=== PATIENT | female | born 1940 | race Caucasian/White ===

== ENCOUNTER 2017-03-07 14:45 | Inpatient (IN) ==
[2017-03-07] MEDS ORDERED: ONDANSETRON ODT 4 MG TABLET SL ONE (15:02)
--- NOTE | 2017-03-07 15:09 | Emergency Department Note ---
Fall HPI - General Chief Complaint: Fall Stated Complaint: Fall, R hip pain Time Seen by Provider: 03/07/17 14:53 Source: patient, family Mode of arrival: wheelchair Limitations: no limitations - History of Present Illness HPI Narrative: 77-year-old female who tripped over a garden hose at home and fell. She landed on her left hip and left knee these are quite painful now. She is in severe pain moaning. Denies any nausea vomiting diarrhea recent illness - Related Data Home Medications Medication Instructions Recorded Confirmed Donepezil [Aricept] 10 mg PO HS 04/04/15 03/07/17 Metoprolol Succinate [Toprol Xl] 25 mg PO DAILY 04/04/15 03/07/17 Rivaroxaban [Xarelto] 20 mg PO DAILY 04/04/15 03/07/17 Verapamil [Calan Sr] 240 mg PO DAILY 04/04/15 03/07/17 Sertraline [Zoloft] 100 mg PO DAILY 03/07/17 03/07/17 Allergies Allergy/AdvReac Type Severity Reaction Status Date / Time adhesive tape AdvReac Hives Verified 03/07/17 14:48 codeine AdvReac Confusion Verified 03/07/17 14:48 Penicillins AdvReac Hives Verified 03/07/17 14:48 Review of Systems All systems ED: reviewed and negative except as stated. Fall PMH - Past Medical History Attestation: Yes: The following information was validated with the patient. Medical history: Reports: atrial fibrillation, hypertension, other (Minor cognitive impairment/early dementia) Surgical history ED: Reports: other (Gastric bypass) - Social History smoking status: Never smoker Alcohol use: Reports: None Drug use: Reports: none Physical Exam Thin frail elderly female in some acute distress secondary to pain. Normocephalic atraumatic. Conjunctive are clear sclerae nonicteric. No nasal discharge or congestion. Oropharynx pink and moist. Heart is regular rate and rhythm no murmur appreciated. Lungs clear to auscultation bilaterally without wheezes rales rhonchi or respiratory distress. +2 radial pulse. +2 posterior tibialis pulse on the left. She is got some tenderness at the medial portion of the right knee joint line but no significant edema effusion or redness in this area. Similar right hip very tender both at the groin and the greater trochanter area and she is not wanting to move that well. Leg length looks about equal and I do not see any deformity. She is able to move her toes foot and ankle normally. Alert and oriented able to answer questions appropriately. Face is symmetrical Limitations: no limitations Course Vital Signs Temperature 98.5 F 03/07/17 14:46 Pulse Rate 68 03/07/17 14:46 Respiratory Rate 22 03/07/17 14:46 Blood Pressure 168/112 03/07/17 14:46 Pulse Oximetry (%) 97 03/07/17 14:46 Temperature 97.8 F 03/08/17 06:50 Pulse Rate 92 H 03/08/17 04:00 Respiratory Rate 14 03/08/17 06:50 Blood Pressure 109/76 03/08/17 06:50 Pulse Oximetry (%) 96 03/08/17 06:50 Fall - Lab Data Lab results reviewed: Yes I reviewed the patient's lab results. Result diagrams: 03/08/17 04:05 03/08/17 04:05 Lab Results 03/07/17 03/07/17 03/07/17 Range/Units 16:05 16:05 16:05 WBC 10.3 (4.5-11.0) K/mcL RBC 4.64 (4.00-5.20) M/mcL Hgb 14.5 (12.0-15.0) g/dL Hct 42.7 (36.0-48.0) % POC Hct 47.0 (36.0-48.0) % MCV 92.1 (80.0-100.0) fL MCH 31.2 (26.0-34.0) pg MCHC 33.8 (31.0-36.0) g/dL RDW 13.6 (11.5-14.5) % Plt Count 161 (140-440) K/mcL MPV 9.0 (7.4-10.4) fL Gran % 67.0 (38.0-78.0) % Lymph % (Auto) 26.6 (15.5-49.0) % [place] % (Auto) 4.7 (1.0-12.0) % Eos % (Auto) 0.8 (0.0-7.0) % Baso % (Auto) 0.9 (0.0-2.0) % Gran # 6.9 (1.8-8.0) K/mcL Lymph # (Auto) 2.7 (1.5-4.8) K/mcL [place] # (Auto) 0.5 (0.1-0.9) K/mcL Eos # (Auto) 0.1 (0.0-0.7) K/mcL Baso # (Auto) 0.1 (0.0-0.3) K/mcL VBG Lactic Acid 2.6 H (0.5-2.2) mmol/L POC Sodium 139 (133-145) mmol/L Sodium 140 (133-145) mmol/L POC Potassium 4.4 (3.3-5.1) mmol/L Potassium 4.1 (3.3-5.1) mmol/L POC Chloride 110 H (96-108) mmol/L Chloride 103 (96-108) mmol/L Carbon Dioxide 21 L (22-30) mmol/L POC Total CO2 21 L (22-30) mmol/L Anion Gap 16.0 (8-16) POC BUN 18 (8-23) mg/dl BUN 15 (8-23) mg/dl Creatinine 0.7 (0.6-1.1) mg/dl POC Creatinine 0.6 (0.6-1.1) mg/dl GFR Calculation 84 Glucose 114 H (70-105) mg/dL POC Glucose 94 (70-105) mg/dL Calcium 9.6 (8.6-10.4) mg/dl POC WB Ioniz Calcium 1.03 L (1.16-1.32) mmol/L Total Bilirubin 0.3 (0.0-1.0) mg/dL AST 23 (0-37) U/l ALT 23 (0-40) U/l Alkaline Phosphatase 69 (39-117) U/L Total Protein 6.6 (5.9-8.4) gm/dL Albumin 4.1 (3.2-5.2) gm/dL Globulin 2.5 (2.2-3.7) gm/dL Albumin/Globulin Ratio 1.6 (1.0-2.3) - Radiology Data Radiology results reviewed: Yes I reviewed the patient's radiology results. Chest x-ray showed no acute cardiopulmonary abnormality Right knee x-ray does not show any acute dislocation or fracture Right hip x-ray shows impacted subcapital femoral fracture - EKG Data EKG attestation: Yes I reviewed and interpreted this EKG. EKG results narrative: EKG showed rate of 73 atrial fibrillation Disposition Pt seen by MANAGER ENVIRONMENTAL HEALTH AND SAFETY/PA only: No Clinical Impression: Subcapital fracture of right femur Summary: Initial workup with imaging and laboratory. Preoperative tests ordered as well in anticipation of possible hip fracture requiring surgery. Pain is treated with Dilaudid as well as nausea with Zofran X-ray shows impacted subcapital right femoral fracture. Dr. Gomez was consulted and did see the patient. She will be admitted and taken back to the OR for definitive care Disposition: Xfer As Outpt/Obs ([facility]) Condition: Fair
[2017-03-07] MEDS: HYDROmorphone 2 MG/ML SYRINGE IV PRN ×2 (15:30→17:00)
--- NOTE | 2017-03-07 16:22 | Orthopedic Consult Note ---
History of Present Illness - HPI Patient information: Note initiated : 03/07/17 at 4:20 pm Service Date, if different from initiated Date: [] Patient: Irma Franco 77 y/o F admitted on for Fall, R hip pain. Chief Complaint: [right hip and knee pain] The patient fell over a garden hose at home this morning, landing on her right hip and knee. She was unable to ambulate and was brought by her daughter to the ER this morning. She denies hitting her head, nausea, vomiting, loss of consciousness or a history of frequent falls. She has a PMH significant for atrial fibrillation, hypertension, cognitive impairment. She denies alcohol, tobacco or drug use. Consult reason: fracture Review of Systems Constitutional: no chills, no fever(s), no frequent falls Cardiovascular: no chest pain, no dyspnea Respiratory: no dyspnea, no dyspnea on exertion Musculoskeletal: abnormal gait, muscle cramps Musculoskeletal: right: hip pain, knee pain Medications and Allergies Home Medications Medication Instructions Recorded Confirmed Type Donepezil [Aricept] 10 mg PO HS 04/04/15 04/04/15 History Metoprolol Succinate [Toprol Xl] 25 mg PO DAILY 04/04/15 04/04/15 History Rivaroxaban [Xarelto] 20 mg PO DAILY 04/04/15 04/04/15 History Spironolactone [Aldactone] 25 mg PO DAILY 04/04/15 04/04/15 History Verapamil [Calan Sr] 240 mg PO DAILY 04/04/15 04/04/15 History Vilazodone HCl [Viibryd] 20 mg PO DAILY 04/04/15 04/04/15 History Nitrofurantoin Sr [Macrobid] 100 mg PO BID #20 capsule 04/05/15 Rx Allergies Allergy/AdvReac Type Severity Reaction Status Date / Time adhesive tape AdvReac Hives Verified 03/07/17 14:48 codeine AdvReac Confusion Verified 03/07/17 14:48 Penicillins AdvReac Hives Verified 03/07/17 14:48 Physical Examination - Hip right Gait: other (non ambulatory) Tenderness with palpation: anterior, posterior, medial, lateral, greater trochanter, other Pain with motion: internal rotation and hip flexion, internal rotation and hip extension, external rotation and hip flexion, external rotation and hip extension, other - Fracture right hip Compartments: soft Distal extremity neurovascularly intact: Yes Assessment and Plan (1) Intertrochanteric fracture of right hip Assessment: intertrochanteric displaced right hip fracture Plan: -Patient was assessed by Dr. Gomez in the ER and imaging was revealed which showed a right displaced hip fracture. The recommended procedure is an intramedullary hip nail. This was discussed with the patient and her daughter including the risks and benefits therein including fracture nonunion, wound failure, infection, blood clot. The patient understands and wishes to proceed with surgery. No guarantees were made. -Will be admitted to inpatient per hospitalist for medical management -On xarelto. Will monitor CBC and Hgb serially Status: Acute Exam Vital signs: Temp Pulse Resp BP Pulse Ox 98.5 F 68 22 168/112 97 03/07/17 14:46 03/07/17 14:46 03/07/17 14:46 03/07/17 14:46 03/07/17 14:46 Constitutional: well developed, well nourished, no acute distress Head: normocephalic, atraumatic Respiratory: clear to auscultation bilaterally Cardiovascular: regular rate & rhythm with no murmurs, rubs or gallops Musculoskeletal: other (NVI intact bilateral LE. Motor and sensory grossly intact. Cap refill < 3 sec. right LE externally rotated and shortened)
[2017-03-07 16:37] LABS: Basophils # (Auto) 0.1 K/mcL (0.0-0.3); Basophils % (Auto) 0.9 % (0.0-2.0); Eosinophils # (Auto) 0.1 K/mcL (0.0-0.7); Eosinophils % (Auto) 0.8 % (0.0-7.0); Lymphocytes # (Auto) 2.7 K/mcL (1.5-4.8); Lymphocytes % (Auto) 26.6 % (15.5-49.0); Mean Cell Volume 92.1 fL (80.0-100.0); Mean Corpuscular HGB Conc 33.8 g/dL (31.0-36.0); Mean Corpuscular Hemoglobin 31.2 pg (26.0-34.0); Monocytes # (Auto) 0.5 K/mcL (0.1-0.9); Monocytes % (Auto) 4.7 % (1.0-12.0); Platelet Count 161 K/mcL (140-440); RBC 4.64 M/mcL (4.00-5.20); Red Cell Distribution Width 13.6 % (11.5-14.5)
[2017-03-07 16:43] LABS: ALT/SGPT 23 U/l (0-40); Albumin 4.1 gm/dL (3.2-5.2); Albumin/Globulin Ratio 1.6 (1.0-2.3); Alkaline Phosphatase 69 U/L (39-117); Blood Urea Nitrogen 15 mg/dl (8-23)
[2017-03-07] MEDS ORDERED: 0.9 % SODIUM CHLORIDE 1,000 ML IV ONE (16:43)
[2017-03-07] MEDS ORDERED: HYDROmorphone 2 MG/ML SYRINGE ONE (17:07)
--- NOTE | 2017-03-07 17:35 | Internal Med History&Physical ---
Medical - H&P: [facility] Patient information: Note initiated : 03/07/17 at 5:33 pm Service Date, if different from initiated Date: [] Patient: Irma Franco a 77 y/o F admitted on for Fall, R hip pain. Chief Complaint: right hip and knee pain History of present illness: Ms. Franco is a 77 year old F female with history of treated hypertension, rate controlled atrial fibrillation on several toe, cognitive impairment on Aricept who presents after a fall at home. Most of the history is obtained in speaking with the emergency department, the patient is quite somnolent postoperatively. Patient tripped over a garden hose this morning. She fell onto her right knee and hip. She had pain in both joints. She did not have chest pain, was not dizzy, did not strike her head. There was no loss of consciousness. She is transported to the hospital, where she is found to have a subcapital right femoral neck fracture. From the emergency department she was taken directly to the operating room for repair by Dr. Gomez. When I see the patient, she is postop, somnolent and cannot give much further history. ROS unobtainable: due to mental status Medical - H&P: PMH Medical history: Atrial fibrillation, on Xarelto for stroke prophylaxis Hypertension Cognitive impairment/early dementia History of urinary tract infection Surgical history: History of gastric bypass Pertinent family history: The patient's unable to provide due to somnolence in the postoperative period Social history: Patient has never smoked cigarettes. She has not drink alcohol. Medical - H&P: Meds Home Medications Medication Instructions Recorded Confirmed Type Donepezil [Aricept] 10 mg PO HS 04/04/15 03/07/17 History Metoprolol Succinate [Toprol Xl] 25 mg PO DAILY 04/04/15 03/07/17 History Rivaroxaban [Xarelto] 20 mg PO DAILY 04/04/15 03/07/17 History Verapamil [Calan Sr] 240 mg PO DAILY 04/04/15 03/07/17 History Sertraline [Zoloft] 100 mg PO DAILY 03/07/17 03/07/17 History Allergies Allergy/AdvReac Type Severity Reaction Status Date / Time adhesive tape AdvReac Hives Verified 03/07/17 14:48 codeine AdvReac Confusion Verified 03/07/17 14:48 Penicillins AdvReac Hives Verified 03/07/17 14:48 Medical - H&P: Exam - Constitutional Vitals: Temp Pulse Resp BP Pulse Ox 98.5 F 73 22 183/108 97 03/07/17 14:46 03/07/17 17:08 03/07/17 14:46 03/07/17 17:08 03/07/17 17:08 Exam: General: Drowsy, arouses, mumbles some responses. HEENT: Normocephalic. Pupils are equally round. Sclera are anicteric. No conjunctival injection. Oropharynx is with moist mucous membranes, no lip or gum lesions. Tongue is midline. Neck: Supple, no meningismus. No thyromegaly. Chest: Clear to auscultation, no wheezes. No accessory muscle use. Cardiovascular: Irregularly irregular rhythm without murmur gallop or rub. Carotid pulses are 2+ without bruit. There is no lower extremity edema. Abdomen: Soft, nontender without guarding or rebound. Active bowel sounds. No hepatosplenomegaly. Skin: Warm, dry. No rash. Skin turgor is normal Musculoskeletal: Right hip with dressings in place. No other joint erythema. BLE cool, but neurovascularly intact. Neuro: Drowsy, answers to name. Cannot participate in remainder of exam. Medical - H&P: Reslt - Labs CBC & Chem 7: 03/07/17 16:05 03/07/17 16:05 Labs: Short CBC 03/07/17 Range/Units 16:05 WBC 10.3 (4.5-11.0) K/mcL Hgb 14.5 (12.0-15.0) g/dL Hct 42.7 (36.0-48.0) % Plt Count 161 (140-440) K/mcL BMP 03/07/17 16:05 Sodium 140 Potassium 4.1 Chloride 103 Carbon Dioxide 21 L BUN 15 Creatinine 0.7 Glucose 114 H Calcium 9.6 Liver Function 03/07/17 Range/Units 16:05 Total Bilirubin 0.3 (0.0-1.0) mg/dL AST 23 (0-37) U/l ALT 23 (0-40) U/l Alkaline Phosphatase 69 (39-117) U/L Albumin 4.1 (3.2-5.2) gm/dL - EKG Data -: EKG Reviewed by Myself (A fib, rate controlled, no ST changes) - Impressions Chest x-ray, reviewed Clear lung day Right hip and femur films Right intertrochanteric femur fracture. No knee fracture. Medical - H&P: A/P (1) Intertrochanteric fracture of right hip Current visit: Yes Status: Acute (2) Atrial fibrillation Current visit: Yes Status: Chronic (3) Hypertension Current visit: Yes Status: Chronic (4) Cognitive impairment Current visit: Yes Status: Chronic - Narrative A/P Narrative: 77-year-old female with ground-level fall and right hip fracture. Right intertrochanteric hip fracture. Patient is status post repair by Dr. Gomez. Mechanism appears to be mechanical ground-level fall. No evidence of cardiac event, no loss of consciousness. She tripped over a garden hose. Plan: 1. Inpatient admission 2. Pain control 3. Physical therapy consultation Elevated lactate. Lactate mildly elevated at 2.6. No evidence of sepsis. Plan: Recheck following fluids and surgery. Atrial fibrillation. On metoprolol and verapamil for rate control. Also on Xarelto for stroke prophylaxis. At risk for bleeding due to Xarelto therapy. Plan: Resume Xarelto in AM, (at least 12 hrs post-op), trend hemoglobin. Transfuse if needed. Hypertension. Plan: Continue home regimen. Cognitive impairment/dementia. At risk for delirium in the postoperative [place]. Plan: Continue Aricept, supportive care, try to minimize INVENTORY SPECIALIST MANAGER active medications. CODE STATUS: Unable to discuss CODE STATUS due to somnolence. Full code by default at this point, we will readdress when awake.
[2017-03-07] MEDS: ceFAZolin 1 GM VIAL IV SCH ×2 (17:50)
[2017-03-07] MEDS ORDERED: fentaNYL 100 MCG/2 ML VIAL IV PRN (17:52)
[2017-03-07] MEDS ORDERED: METHOCARBAMOL 1,000 MG/10 ML VIAL IV PRN (17:52)
[2017-03-07] MEDS ORDERED: IPRATROPIUM/ALBUTEROL 3 ML AMPUL.NEB NEB PRN (17:52)
[2017-03-07] MEDS ORDERED: MEPERIDINE 25 MG/ML SYRINGE IV PRN (17:52)
[2017-03-07] MEDS ORDERED: ONDANSETRON 4 MG/2 ML VIAL IV PRN ×2 (17:52→19:38)
[2017-03-07] MEDS ORDERED: LIDOCAINE HCL/PF 100 MG/5 ML SYRINGE IV ONE (18:00)
[2017-03-07] MEDS ORDERED: PROPOFOL 200 MG/20 ML VIAL IV ONE (18:00)
[2017-03-07] MEDS ORDERED: PROMETHAZINE 12.5 MG SUPP.RECT PR ONE (18:00)
[2017-03-07] MEDS ORDERED: HYDROmorphone 2 MG/ML SYRINGE IV ONE (18:00)
[2017-03-07] MEDS ORDERED: MIDAZOLAM 2 MG/2 ML VIAL IV ONE (18:00)
[2017-03-07] MEDS ORDERED: GLYCOPYRROLATE 0.2 MG/ML VIAL IV ONE (18:00)
[2017-03-07] MEDS ORDERED: LACTATED RINGERS 1,000 ML IV SCH (18:00)
[2017-03-07] MEDS ORDERED: NALBUPHINE 10 MG/ML AMPUL IV ONE (18:00)
[2017-03-07] MEDS ORDERED: KETAMINE 100 MG/ML ML IV ONE (18:00)
--- NOTE | 2017-03-07 18:56 | Brief Operative Note ---
Date of procedure: 03/07/17 Pre-op diagnosis: right hip intertrochanteric fracture Post-op diagnosis: same Procedure: right hip cephalomedullary nail Grafts/Implants: Yes Anesthesia: GETA Complications: none Surgeon: Steve Gomez Supervisor [employer]: Carolyn Ariza Estimated blood loss (cc): 150 Specimens Removed/Pathology: none sent Condition: stable Disposition: PACU
[2017-03-07] MEDS ORDERED: METOPROLOL TARTRATE 5 MG/5 ML VIAL IV PRN (18:57)
[2017-03-07] MEDS ORDERED: POLYETHYLENE GLYCOL 3350 17 GM PACKET PO PRN (19:38)
[2017-03-07] MEDS ORDERED: ONDANSETRON ODT 4 MG TABLET SL PRN (19:38)
[2017-03-07] MEDS ORDERED: MAGNESIUM HYDROXIDE 30 ML ORAL.SUSP PO PRN (19:38)
[2017-03-07] MEDS ORDERED: BENZOCAINE/MENTHOL 1 LOZENGE PO PRN (19:38)
[2017-03-07] MEDS ORDERED: FLEETS ADULT ENEMA PR PRN (19:38)
[2017-03-07] MEDS ORDERED: BISACODYL 10 MG SUPP.RECT PR PRN (19:38)
[2017-03-07] MEDS: 0.9 % SODIUM CHLORIDE 1,000 ML IV SCH (20:06)
[2017-03-07] MEDS: DONEPEZIL 10 MG TABLET PO SCH (22:19)
[2017-03-07] MEDS: DOCUSATE SODIUM 100 MG CAPSULE PO SCH (22:20)
[2017-03-07] MEDS: SENNOSIDES 1 TABLET PO SCH (22:20)
[2017-03-08] MEDS: ceFAZolin 1 GM VIAL IV SCH ×2 (01:46→09:22)
[2017-03-08] MEDS: 0.9 % SODIUM CHLORIDE 1,000 ML IV SCH ×2 (05:33→14:49)
--- NOTE | 2017-03-08 06:24 | Orthopedic Progress Note ---
Subjective Patient information: Note initiated : 03/08/17 at 6:23 am Service Date, if different from initiated Date: [] Patient: Irma Franco 77 y/o F admitted on 03/07/17 for Fall, R hip pain. Chief Complaint: [] Interval history: doing ok. pain under control Objective Vital signs: Vital Signs Temp Pulse Pulse Pulse Resp BP BP 03/08/17 04:00 97.4 F 92 H 18 109/77 03/07/17 23:45 81 125/80 03/07/17 23:43 96.9 F L 89 16 125/80 03/07/17 22:45 87 121/82 03/07/17 21:45 79 145/98 03/07/17 21:15 73 139/92 03/07/17 20:45 74 155/91 03/07/17 20:30 83 152/101 03/07/17 20:15 79 157/103 03/07/17 20:00 81 158/110 03/07/17 19:45 97.9 F 75 16 161/98 03/07/17 19:22 99.0 F H 80 18 165/88 03/07/17 19:17 98.9 F 82 13 165/93 03/07/17 19:12 97.3 F 73 14 169/101 03/07/17 19:07 97.1 F 78 12 151/102 03/07/17 19:02 97.6 F 118 H 15 173/110 03/07/17 18:57 97.4 F 79 13 171/108 03/07/17 18:52 98.3 F 86 15 178/103 03/07/17 17:36 98.5 F 73 22 168/112 03/07/17 17:08 73 183/108 03/07/17 14:46 98.5 F 68 22 168/112 Pulse Ox 03/08/17 04:00 95 03/07/17 23:45 100 03/07/17 23:43 99 03/07/17 22:45 97 03/07/17 21:45 99 03/07/17 21:15 100 03/07/17 20:45 98 03/07/17 20:30 98 03/07/17 20:15 99 03/07/17 20:00 98 03/07/17 19:45 97 03/07/17 19:22 100 03/07/17 19:17 100 03/07/17 19:12 98 03/07/17 19:07 100 03/07/17 19:02 90 03/07/17 18:57 96 03/07/17 18:52 99 03/07/17 17:36 97 03/07/17 17:08 97 03/07/17 14:46 97 Intake and Output 03/07/17 03/08/17 03/08/17 21:59 05:59 13:59 Intake Total 105 / 105 1045 / 1045 Output Total 600 / 600 400 / 400 Balance -495 / -495 645 / 645 Intake: IV 105 / 105 945 / 945 Sodium Chloride 0.9% 1,000 ml @ 105 / 105 945 / 945 100 mls/hr IV .Q10H PREETI Rx#: [id number] Oral 100 / 100 Output: Urine Catheter Amount 600 / 600 400 / 400 Other: Weight 135 lb Intake & Output: Intake & Output 03/07/17 03/08/17 03/08/17 21:59 05:59 13:59 Intake Total 105 / 105 1045 / 1045 Output Total 600 / 600 400 / 400 Balance -495 / -495 645 / 645 Weight 135 lb Intake: IV 105 / 105 945 / 945 Sodium Chloride 0.9% 1,000 ml @ 105 / 105 945 / 945 100 mls/hr IV .Q10H PREETI Rx#: [id number] Oral 100 / 100 Output: Urine Catheter Amount 600 / 600 400 / 400 Incision: Yes healing Dressing: Yes clean, Yes dry, Yes intact Weight bearing status: full Neurological exam IM: Yes abnormal gait, Yes alert, Yes motor sensory intact, Yes neurovascular intact Extremities exam IM: No calf tenderness, Yes Foot pink and warm, Yes neurovascular intact - Labs CBC & BMP: 03/08/17 04:05 03/07/17 16:05 Labs: 03/08/17 03/07/17 04:05 16:05 Hgb 10.9 L 14.5 Hct 32.2 L 42.7 Assessment and Plan (1) Intertrochanteric fracture of right hip pod 1 s/p right hip gamma nail wbat pain control dvt prophylaxis d/c planning - rehab when medically stable Status: Acute
[2017-03-08 06:38] LABS: Blood Urea Nitrogen 13 mg/dl (8-23)
[2017-03-08] MEDS: METHOCARBAMOL 750 MG TABLET PO PRN ×2 (07:59→22:50)
[2017-03-08] MEDS: SERTRALINE 100 MG TABLET PO SCH (08:36)
[2017-03-08] MEDS: VERAPAMIL 120 MG TAB.XL.24H PO SCH (08:36)
[2017-03-08] MEDS: RIVAROXABAN 20 MG TABLET PO SCH (08:36)
[2017-03-08] MEDS: DOCUSATE SODIUM 100 MG CAPSULE PO SCH ×2 (08:36→20:27)
[2017-03-08] MEDS: METOPROLOL SUCCINATE 25 MG TAB.XL.24H PO SCH (08:36)
--- NOTE | 2017-03-08 08:54 | XRay Report ---
HISTORY: Reason for Exam:fall FINDINGS: There is an acute intertrochanteric fracture of the proximal right femur. There is impaction at the fracture site. There is an old healed subcapital fracture of the femoral neck. There are radiolucent screw holes extending through the the femoral neck into the head, following prior removal of hardware.. The hip joint space is normal in width. No other pelvic fracture is present. IMPRESSION: Intertrochanteric fracture of the right hip Interpreted and Authenticated by: Raffaele Bello 03/08/17
--- NOTE | 2017-03-08 08:55 | XRay Report ---
HISTORY: Reason for Exam:fall FINDINGS: No fracture or dislocation are present. The bones are osteopenic. There is mild narrowing of the patellofemoral joint and small subchondral erosions are present along the articular margin of the patella. There has been no significant change since 02/27/10. IMPRESSION: Mild arthritis. No fracture Interpreted and Authenticated by: Raffaele Bello 03/08/17
--- NOTE | 2017-03-08 08:56 | XRay Report ---
HISTORY: Reason for Exam:FALL and preop to repair hip fracture FINDINGS: The lungs are clear and well expanded. The heart is mildly enlarged. This has increased in size since 04/04/15. There is no congestive heart failure or pleural effusion. There is an old healed right lateral rib fracture in the lower thorax. IMPRESSION: Mild cardiomegaly Interpreted and Authenticated by: Raffaele Bello 03/08/17
--- NOTE | 2017-03-08 09:06 | XRay Report ---
HISTORY: Reason for Exam:fall FINDINGS: There is an acute intertrochanteric fracture of the proximal right femur. The lesser trochanter is displaced medially. The femoral head and neck have a mild varus angulation. The shaft of the femur is normal. The hip joint is normal in width. There is a ring of spurs along the margin of the femoral head. IMPRESSION: Intertrochanteric fracture of the proximal right femur Interpreted and Authenticated by: Raffaele Bello 03/08/17
--- NOTE | 2017-03-08 09:33 | XRay Report ---
HISTORY: Reason for Exam:surgery hip fracture Findings: there is good alignment following open reduction internal fixation of the intertrochanteric fracture. A michelle is been inserted through the top of the greater trochanter into the shaft of the femur. There is a crossing pin extending into the femoral neck and head. The lesser trochanter remains displaced medially. The hip joint is normal in width and alignment. The impaction seen in the intertrochanteric region on the preoperative film has been corrected. IMPRESSION: Good alignment following open reduction internal fixation of the intertrochanteric fracture Interpreted and Authenticated by: Raffaele Bello 03/08/17
[2017-03-08] MEDS: DONEPEZIL 10 MG TABLET PO SCH (20:27)
[2017-03-08] MEDS: SENNOSIDES 1 TABLET PO SCH (20:27)
--- NOTE | 2017-03-08 23:11 | Internal Med Progress Note ---
Medical - PN: Subj Patient information: Note initiated : 03/08/17 at 11:11 pm Service Date, if different from initiated Date: [] Patient: Irma Franco 77 y/o F admitted on 03/07/17 for Fall, R hip pain. Chief Complaint: f/u hip fracture Interval history: Mar 07 Patient tripped over a garden hose this morning. She fell onto her right knee and hip. She had pain in both joints. She did not have chest pain, was not dizzy, did not strike her head. There was no loss of consciousness. She is transported to the hospital, where she is found to have a subcapital right femoral neck fracture. From the emergency department she was taken directly to the operating room for repair by Dr. Gomez. When I see the patient, she is postop, somnolent and cannot give much further history. Mar 08 Patient awake and alert this morning. Confirms that she tripped over a garden hose when she was at her in-laws. Hoping she'll be able to return home or stay with her daughter and not have to go to a skilled facility. Pain is generally controlled. Starting to work with physical therapy. - Constitutional Vitals: Vital Signs Temp Pulse Resp BP Pulse Ox 97.4 F 89 18 100/70 95 03/08/17 22:58 03/08/17 22:58 03/08/17 22:58 03/08/17 22:58 03/08/17 23:01 Period Temp Pulse Resp BP Sys/Huizar Pulse Ox Last 24 Hr 96.9 F-98.6 F 81-92 14-18 100-125/68-80 88-100 Intake and Output 03/08/17 03/08/17 03/09/17 13:59 21:59 05:59 Intake Total 180 / 180 Output Total 200 / 200 Balance -20 / -20 Weight 135 lb Patient Weight 03/09/17 05:59 Weight 135 lb Intake & Output: Intake & Output 03/08/17 03/08/17 03/09/17 13:59 21:59 05:59 Intake Total 180 / 180 Output Total 200 / 200 Balance -20 / -20 Weight 135 lb Intake: Oral 180 / 180 Output: Urine Catheter Amount 200 / 200 Other: Meal Dinner Percent of Meal Consumed Refused Feeding Ability Independent Exam: General: Sitting in bed, no distress Chest: Clear Cardiovascular: Irregularly irregular, no edema Abdomen: Soft, active bowel sounds Musculoskeletal: Right hip dressing intact. Limb is neurovascularly intact. Neuro: Alert, oriented Medical - PN: Obj Da - Labs CBC & Chem 7: 03/08/17 04:05 03/08/17 04:05 Labs: Abnormal Lab Results 03/08/17 03/08/17 03/07/17 04:05 04:05 16:05 Hgb 10.9 L Hct 32.2 L VBG Lactic Acid 2.6 H POC Chloride Carbon Dioxide 21 L POC Total CO2 Glucose 153 H Calcium 8.1 L POC WB Ioniz Calcium 03/07/17 16:05 Hgb Hct VBG Lactic Acid POC Chloride 110 H Carbon Dioxide 21 L POC Total CO2 21 L Glucose 114 H Calcium POC WB Ioniz Calcium 1.03 L Meds: Medications Hydrocodone Bitart/Acetaminophen (Lorane 5/325mg) 0 tab PO Q4HP PRN PRN Reason: PAIN LEVEL 3-6 Bisacodyl (Dulcolax) 10 mg ID Q2-3DAYS PRN PRN Reason: Constipation Docusate Sodium (Colace) 100 mg PO BID [facility] Last Admin: 03/08/17 20:27 Dose: 100 mg Donepezil HCl (Aricept) 10 mg PO HS [facility] Last Admin: 03/08/17 20:27 Dose: 10 mg Sodium Chloride (Sodium Chloride 0.9%) 1,000 mls @ 100 mls/hr IV .Q10H [facility] Last Admin: 03/08/17 14:49 Dose: Not Given Magnesium Hydroxide (Milk Of Magnesia) 30 ml PO BIDP PRN PRN Reason: Constipation Methocarbamol (Robaxin) 750 mg PO Q6HP PRN PRN Reason: Muscle Spasm Last Admin: 03/08/17 22:50 Dose: 750 mg Metoprolol Succinate (Toprol Xl) 25 mg PO DAILY [facility] Last Admin: 03/08/17 08:36 Dose: 25 mg Morphine Sulfate (Morphine) 0 mg IV Q1HP PRN PRN Reason: PAIN LEVEL > 6 Last Admin: 03/08/17 22:50 Dose: 4 mg Ondansetron HCl (Zofran) 4 mg IV Q4HP PRN PRN Reason: Nausea And Vomiting Ondansetron HCl (Zofran Odt) 4 mg SL Q4HP PRN PRN Reason: Nausea And Vomiting Polyethylene Glycol (Miralax) 17 gm PO DAILYP PRN PRN Reason: Constipation Rivaroxaban (Xarelto) 20 mg PO QAC [facility] Last Admin: 03/08/17 08:36 Dose: 20 mg Senna (Senokot) 2 tab PO HS [facility] Last Admin: 03/08/17 20:27 Dose: 2 tab Sertraline HCl (Zoloft) 100 mg PO DAILY [facility] Last Admin: 03/08/17 08:36 Dose: 100 mg Sodium Biphosphate/Sodium Phosphate (Fleets Adult) 1 dose ID Q3-4DAYS PRN PRN Reason: Constipation Throat Lozenges (Cepacol) 1 lozenge PO PRN PRN PRN Reason: Sore Throat Verapamil HCl (Calan Sr) 240 mg PO DAILY [facility] Last Admin: 03/08/17 08:36 Dose: 240 mg Medical - PN: A/P - Time Spent With Patient Total time spent is greater than 50% in coordination of care (as documented) at patient's floor/unit and/or counseling patient: (1) Intertrochanteric fracture of right hip Status: Acute Current Visit: Yes (2) Atrial fibrillation Status: Chronic Current Visit: Yes (3) Hypertension Status: Chronic Current Visit: Yes (4) Cognitive impairment Status: Chronic Current Visit: Yes - Narrative A/P Narrative: 77-year-old female with ground-level fall and right hip fracture. Right intertrochanteric hip fracture. POD#1 after repair. Plan: Continue with PT, pain control Elevated lactate. Lactate mildly elevated at 2.6. No evidence of sepsis. Plan: Recheck following fluids and surgery-->normal Atrial fibrillation. On metoprolol and verapamil for rate control. Also on Xarelto for stroke prophylaxis. At risk for bleeding due to Xarelto therapy. Plan: Xarelto resumed, monitor hemoglobin. Transfuse if needed. Hypertension. Plan: Continue home regimen. Cognitive impairment/dementia. At risk for delirium in the postoperative period. Plan: Continue Aricept, supportive care, try to minimize TRAINER active medications.
[2017-03-09] MEDS: HYDROcodone/APAP 5/325MG TABLET PO PRN ×3 (02:07→19:27)
[2017-03-09] MEDS: 0.9 % SODIUM CHLORIDE 1,000 ML IV SCH ×3 (05:59→21:53)
[2017-03-09 06:28] LABS: Blood Urea Nitrogen 15 mg/dl (8-23)
[2017-03-09] MEDS: RIVAROXABAN 20 MG TABLET PO SCH (07:59)
[2017-03-09] MEDS: SERTRALINE 100 MG TABLET PO SCH (09:22)
[2017-03-09] MEDS: VERAPAMIL 120 MG TAB.XL.24H PO SCH (09:22)
[2017-03-09] MEDS: METOPROLOL SUCCINATE 25 MG TAB.XL.24H PO SCH (09:23)
[2017-03-09] MEDS: DOCUSATE SODIUM 100 MG CAPSULE PO SCH ×2 (09:23→21:52)
--- NOTE | 2017-03-09 11:14 | Orthopedic Progress Note ---
Subjective Patient information: Note initiated : 03/09/17 at 11:13 am Service Date, if different from initiated Date: [] Patient: Irma Franco 77 y/o F admitted on 03/07/17 for Fall, R hip pain. Chief Complaint: [] Interval history: doing well. pain improving. slow to mobilize Objective Vital signs: Vital Signs Temp Pulse Resp BP Pulse Ox 03/09/17 08:00 99 F 16 102/70 97 03/09/17 07:33 97 03/09/17 04:41 98.4 F 83 16 91/57 92 03/08/17 23:01 95 03/08/17 22:58 97.4 F 89 18 100/70 88 L 03/08/17 20:00 98.6 F 92 H 18 101/68 93 03/08/17 15:03 98.1 F 16 103/72 96 03/08/17 11:35 97.6 F 14 114/79 97 Intake and Output 03/08/17 03/09/17 03/09/17 21:59 05:59 13:59 Intake Total 1180 / 1180 800 / 800 Output Total 200 / 200 300 / 300 Balance 980 / 980 500 / 500 Intake: IV 1000 / 1000 Sodium Chloride 0.9% 1,000 ml @ 1000 / 1000 100 mls/hr IV .Q10H [facility] Rx#: [id number] Oral 180 / 180 800 / 800 Output: Urine Catheter Amount 200 / 200 300 / 300 Other: Meal Dinner Percent of Meal Consumed Refused Feeding Ability Independent # Bowel Movements 1 Intake & Output: Intake & Output 03/08/17 03/09/17 03/09/17 21:59 05:59 13:59 Intake Total 1180 / 1180 800 / 800 Output Total 200 / 200 300 / 300 Balance 980 / 980 500 / 500 Intake: IV 1000 / 1000 Sodium Chloride 0.9% 1,000 ml @ 1000 / 1000 100 mls/hr IV .Q10H [facility] Rx#: [id number] Oral 180 / 180 800 / 800 Output: Urine Catheter Amount 200 / 200 300 / 300 Other: Meal Dinner Percent of Meal Consumed Refused Feeding Ability Independent # Bowel Movements 1 Incision: Yes healing Incision clean and dry: Yes Dressing: Yes clean, Yes dry, Yes intact Weight bearing status: full Neurological exam IM: Yes abnormal gait, Yes alert, Yes oriented X3, Yes motor sensory intact, Yes neurovascular intact Extremities exam IM: No calf tenderness, Yes Foot pink and warm, Yes neurovascular intact - Labs CBC & BMP: 03/09/17 04:30 03/09/17 04:30 Labs: 03/09/17 03/08/17 03/07/17 04:30 04:05 16:05 Hgb 8.8 L 10.9 L 14.5 Hct 26.3 L 32.2 L 42.7 Assessment and Plan (1) Intertrochanteric fracture of right hip pod 2 s/p right hip gamma nail wbat pain control dvt prophylaxis d/c planning - rehab when medically stable Status: Acute
--- NOTE | 2017-03-09 11:15 | Discharge Summary ---
Ortho Discharge Plan - General - Patient Instructions Diet: Regular Diet Activity: weight bearing as tolerated Dressing Care: May shower in 2 days - Problem Maintenance (1) Intertrochanteric fracture of right hip Status: Acute - Follow Up Plan Disposition: Xfer SNF Prognosis: Good Rehab Potential: Good I certify that the patient requires SNF services: Yes Overall status at discharge: patient is progressing back to baseline
--- NOTE | 2017-03-09 15:37 | Internal Med Progress Note ---
Medical - PN: Subj Patient information: Note initiated : 03/09/17 at 3:35 pm Service Date, if different from initiated Date: [] Patient: Irma Franco 77 y/o F admitted on 03/07/17 for Fall, R hip pain. Chief Complaint: follow-up hip fracture Interval history: Mar 07 Patient tripped over a garden hose this morning. She fell onto her right knee and hip. She had pain in both joints. She did not have chest pain, was not dizzy, did not strike her head. There was no loss of consciousness. She is transported to the hospital, where she is found to have a subcapital right femoral neck fracture. From the emergency department she was taken directly to the operating room for repair by Dr. Gomez. When I see the patient, she is postop, somnolent and cannot give much further history. Mar 08 Patient awake and alert this morning. Confirms that she tripped over a garden hose when she was at her in-laws. Hoping she'll be able to return home or stay with her daughter and not have to go to a skilled facility. Pain is generally controlled. Starting to work with physical therapy. Johnathon 1 Up in chair, feels pretty good, though has poor appetite. Not much by mouth intake. Urine output is low. Catheter remains in place to accurately monitor output. - Constitutional Vitals: Vital Signs Temp Pulse Resp BP Pulse Ox 98.6 F 83 16 106/67 98 03/09/17 11:34 03/09/17 04:41 03/09/17 11:34 03/09/17 11:34 03/09/17 11:34 Period Temp Pulse Resp BP Sys/Huizar Pulse Ox Last 24 Hr 97.4 F-99 F 83-92 16-18 91-106/57-70 88-98 Intake and Output 03/09/17 03/09/17 03/09/17 05:59 13:59 21:59 Intake Total 800 / 800 Output Total 300 / 300 Balance 500 / 500 Intake & Output: Intake & Output 03/09/17 03/09/17 03/09/17 05:59 13:59 21:59 Intake Total 800 / 800 Output Total 300 / 300 Balance 500 / 500 Intake: Oral 800 / 800 Output: Urine Catheter Amount 300 / 300 Other: # Bowel Movements 1 Exam: General: In no acute distress Chest: Clear, good air movement Cardiovascular: Irregularly irregular, no edema Abdomen: Soft, nontender, active bowel sounds Musculoskeletal: Right hip bandage is intact and dry. Foot is warm and perfused. Neuro: Alert, oriented, moves all extremities equally Medical - PN: Obj Da - Labs CBC & Chem 7: 03/09/17 04:30 03/09/17 04:30 Labs: Abnormal Lab Results 03/09/17 03/09/17 03/08/17 04:30 04:30 04:05 Hgb 8.8 L Hct 26.3 L VBG Lactic Acid POC Chloride Carbon Dioxide 21 L POC Total CO2 Glucose 137 H 153 H Calcium 7.8 L 8.1 L POC WB Ioniz Calcium 03/08/17 03/07/17 03/07/17 04:05 16:05 16:05 Hgb 10.9 L Hct 32.2 L VBG Lactic Acid 2.6 H POC Chloride 110 H Carbon Dioxide 21 L POC Total CO2 21 L Glucose 114 H Calcium POC WB Ioniz Calcium 1.03 L Meds: Medications Hydrocodone Bitart/Acetaminophen ([place] 5/325mg) 0 tab PO Q4HP PRN PRN Reason: PAIN LEVEL 3-6 Last Admin: 03/09/17 13:08 Dose: 2 tab Bisacodyl (Dulcolax) 10 mg CA Q2-3DAYS PRN PRN Reason: Constipation Docusate Sodium (Colace) 100 mg PO BID [facility] Last Admin: 03/09/17 09:23 Dose: 100 mg Donepezil HCl (Aricept) 10 mg PO HS [facility] Last Admin: 03/08/17 20:27 Dose: 10 mg Sodium Chloride (Sodium Chloride 0.9%) 1,000 mls @ 100 mls/hr IV .Q10H [facility] Last Admin: 03/09/17 10:01 Dose: Not Given Magnesium Hydroxide (Milk Of Magnesia) 30 ml PO BIDP PRN PRN Reason: Constipation Methocarbamol (Robaxin) 750 mg PO Q6HP PRN PRN Reason: Muscle Spasm Last Admin: 03/08/17 22:50 Dose: 750 mg Metoprolol Succinate (Toprol Xl) 25 mg PO DAILY [facility] Last Admin: 03/09/17 09:23 Dose: 25 mg Morphine Sulfate (Morphine) 0 mg IV Q1HP PRN PRN Reason: PAIN LEVEL > 6 Last Admin: 03/08/17 22:50 Dose: 4 mg Ondansetron HCl (Zofran) 4 mg IV Q4HP PRN PRN Reason: Nausea And Vomiting Ondansetron HCl (Zofran Odt) 4 mg SL Q4HP PRN PRN Reason: Nausea And Vomiting Polyethylene Glycol (Miralax) 17 gm PO DAILYP PRN PRN Reason: Constipation Rivaroxaban (Xarelto) 20 mg PO [facility] Last Admin: 03/09/17 07:59 Dose: 20 mg Senna (Senokot) 2 tab PO [facility] Last Admin: 03/08/17 20:27 Dose: 2 tab Sertraline HCl (Zoloft) 100 mg PO DAILY [facility] Last Admin: 03/09/17 09:22 Dose: 100 mg Sodium Biphosphate/Sodium Phosphate (Fleets Adult) 1 dose CA Q3-4DAYS PRN PRN Reason: Constipation Throat Lozenges (Cepacol) 1 lozenge PO PRN PRN PRN Reason: Sore Throat Verapamil HCl (Calan Sr) 240 mg PO DAILY [facility] Last Admin: 03/09/17 09:22 Dose: 240 mg Medical - PN: A/P (1) Intertrochanteric fracture of right hip Status: Acute Current Visit: Yes (2) Atrial fibrillation Status: Chronic Current Visit: Yes (3) Hypertension Status: Chronic Current Visit: Yes (4) Cognitive impairment Status: Chronic Current Visit: Yes - Narrative A/P Narrative: 77-year-old female with ground-level fall and right hip fracture. Right intertrochanteric hip fracture. POD#2 after repair. Plan: Continue with PT, pain control Elevated lactate at presentation (2.6). No evidence of sepsis. Resolved after IVF. Atrial fibrillation. On metoprolol and verapamil for rate control. Also on Xarelto for stroke prophylaxis. At risk for bleeding due to Xarelto therapy, hemoglobin dropped to 10.9-8.8 today. Bandages are dry and nonbloody. Plan: Xarelto resumed, continue to monitor hemoglobin. Transfuse if needed. Hypertension. Plan: Continue home regimen. Cognitive impairment/dementia. At risk for delirium in the postoperative period. Plan: Continue Aricept, supportive care, try to minimize PHOTOVOLTAIC POWER SYSTEMS ENGINEER active medications. Low urine output. Has had low intake, off of IV fluids. By mouth intake encouraged. Will maintain Pride to monitor urine output overnight.
[2017-03-09] MEDS: METHOCARBAMOL 750 MG TABLET PO PRN (21:52)
[2017-03-09] MEDS: SENNOSIDES 1 TABLET PO SCH (21:52)
[2017-03-09] MEDS: DONEPEZIL 10 MG TABLET PO SCH (21:52)
[2017-03-10] MEDS: HYDROcodone/APAP 5/325MG TABLET PO PRN ×4 (02:46→20:58)
[2017-03-10 08:20] LABS: Blood Urea Nitrogen 15 mg/dl (8-23)
[2017-03-10] MEDS: VERAPAMIL 120 MG TAB.XL.24H PO SCH (08:49)
[2017-03-10] MEDS: RIVAROXABAN 20 MG TABLET PO SCH (08:49)
[2017-03-10] MEDS: DOCUSATE SODIUM 100 MG CAPSULE PO SCH ×2 (08:49→20:58)
[2017-03-10] MEDS: SERTRALINE 100 MG TABLET PO SCH (08:49)
[2017-03-10] MEDS: METOPROLOL SUCCINATE 25 MG TAB.XL.24H PO SCH (08:49)
--- NOTE | 2017-03-10 10:33 | Operative Note ---
DATE OF OPERATION: 03/07/2017 PREOPERATIVE DIAGNOSIS: Intertrochanteric fracture, right hip. POSTOPERATIVE DIGNOSIS: Intertrochanteric fracture, right hip. PROCEDURE: Right hip cephalomedullary nailing. SURGEON: Roger Gomez M.D. FULL STACK WEB DEVELOPER SURGEON: Carolyn Ariza PA-C ANESTHESIA: Spinal with LMA assist. ESTIMATED BLOOD LOSS: 150 mL COMPLICATIONS: None noted. SPECIMENS REMOVED: None. DRAINS: None. IMPLANTS: Miriam gamma titanium lag screw 10.5 x 90, [place] gamma trochanteric nail 11 x 180 x 130 degrees, fully threaded locking screw 5 x 35 mm. INDICATIONS: The patient fell and was unable to ambulate. Radiographs have confirmed a displaced intertrochanteric fracture of the proximal femur. The patient was admitted to the hospital and underwent medical clearance. After a long discussion about treatment options, the patient elected to proceed with cephalomedullary nailing. The risks and benefits were discussed with the patient in detail including, but not limited to, the risks of anesthesia, problems with the heart or lungs related to anesthesia, infection, compromise or injury to the nerves and blood vessels, deep venous thrombosis, pulmonary embolism, pneumonia, continued pain after surgery, worsening pain or symptoms after surgery, swelling, loss of motion, malunion, non-union, leg length discrepancy, and need for repeat surgery. DESCRIPTION OF PROCEDURE: The patient was seen in pre-anesthesia waiting room where all questions were answered and the correct side and site were identified and marked. The patient was then brought to the operating room and administered the anesthetic and given preoperative antibiotics. A time-out was then called. The patient was placed on the fracture table with all prominences well padded. The leg was brought into traction, adduction, and slight internal rotation. We used c-arm with orthogonal views to confirm anatomic reduction of the fracture. The extremity was prepped and draped in the usual sterile fashion. C-arm was again used to confirm landmarks. A percutaneous incision was created about 4 centimeters proximal to the greater trochanter. A guide pin was placed into the femoral canal under fluoroscopy after we found the appropriate starting position along the medial boarder of the trochanter and just anterior to the center position laterally. We placed a protector sleeve proximally and over-reamed with the 17 mm proximal reamer. Next, we changed out the guide pin for a ball-tipped guide michelle and placed it into the femoral canal. Position was confirmed with the c-arm. The 180 mm Miriam Gamma nail was then placed with appropriate depth and version using the percutaneous targeting guide. The lateral lag screw sleeve was placed in the targeting guide and a second small percutaneous incision was made to allow the sleeve access to the lateral cortex of the femur. We drilled the guide pin into the center - center position of the femoral head confirmed with fluoroscopy. We measured and drilled over the guide pin. The lag screw was then inserted and we compressed the fracture then placed the proximal screw. The targeting sleeve was again used to place a percutaneous 5.0 mm screw distally in the static hole. It was drilled, measured, and placed using c-arm guidance. Traction was removed on the hip. The targeting device was then removed and final radiographs were taken confirming reduction of the fracture and adequate placement of all hardware. We thoroughly irrigated the three percutaneous incisions and closed the deep fascia with #0 Vicryl. We closed the subcutaneous tissue and skin in layers out to kyaw in the skin. A sterile pressure dressing was applied. All needle and sponge counts were correct. The patient was transferred to the recovery room in stable condition. ANA:karla Job ID: [id number] Doc ID: [id number] Roger Gomez MD
[2017-03-10] MEDS: 0.9 % SODIUM CHLORIDE 1,000 ML IV SCH ×2 (15:39→18:37)
--- NOTE | 2017-03-10 17:49 | Orthopedic Progress Note ---
Subjective Patient information: Note initiated : 03/10/17 at 5:49 pm Service Date, if different from initiated Date: [] Patient: Irma Franco 77 y/o F admitted on 03/07/17 for Fall, R Hip Pain/ Right Hip Fracture. Chief Complaint: [] Interval history: doing well Objective Vital signs: Vital Signs Temp Pulse Resp BP Pulse Ox 03/10/17 15:42 98.4 F 16 104/69 100 03/10/17 11:06 98.0 F 16 98/54 98 03/10/17 08:00 97.8 F 16 93/61 96 03/10/17 07:52 98 03/10/17 03:05 97.6 F 91 H 16 113/76 95 03/09/17 23:34 98.2 F 82 16 106/63 97 03/09/17 20:00 97.9 F 78 16 139/85 96 Intake and Output 03/10/17 03/10/17 03/10/17 05:59 13:59 21:59 Intake Total 250 / 250 240 / 240 700 / 700 Output Total 275 / 275 500 / 500 100 / 100 Balance -25 / -25 -260 / -260 600 / 600 Intake: Oral 250 / 250 240 / 240 700 / 700 Output: Urine Catheter Amount 275 / 275 500 / 500 Void Amount 100 / 100 Other: Meal Lunch Percent of Meal Consumed 25% Feeding Ability Assist with Tray Set Up # Bowel Movements 0 Intake & Output: Intake & Output 03/10/17 03/10/17 03/10/17 05:59 13:59 21:59 Intake Total 250 / 250 240 / 240 700 / 700 Output Total 275 / 275 500 / 500 100 / 100 Balance -25 / -25 -260 / -260 600 / 600 Intake: Oral 250 / 250 240 / 240 700 / 700 Output: Urine Catheter Amount 275 / 275 500 / 500 Void Amount 100 / 100 Other: Meal Lunch Percent of Meal Consumed 25% Feeding Ability Assist with Tray Set Up # Bowel Movements 0 Incision: Yes healing Incision clean and dry: Yes Dressing: Yes clean, Yes dry, Yes intact Weight bearing status: full Neurological exam IM: Yes abnormal gait, Yes alert, Yes oriented X3, Yes motor sensory intact, Yes neurovascular intact Extremities exam IM: No calf tenderness, Yes Foot pink and warm - Labs CBC & BMP: 03/10/17 04:47 03/10/17 04:47 Labs: 03/10/17 03/09/17 03/08/17 04:47 04:30 04:05 Hgb 8.0 L 8.8 L 10.9 L Hct 24.0 L 26.3 L 32.2 L 03/07/17 16:05 Hgb 14.5 Hct 42.7 Assessment and Plan (1) Intertrochanteric fracture of right hip pod 3 s/p right hip gamma nail wbat pain control dvt prophylaxis d/c planning - rehab when medically stable Status: Acute
--- NOTE | 2017-03-10 20:12 | Internal Med Progress Note ---
Medical - PN: Subj Patient information: Note initiated : 03/10/17 at 8:09 pm Service Date, if different from initiated Date: [] Patient: Irma Franco 77 y/o F admitted on 03/07/17 for Fall, R Hip Pain/ Right Hip Fracture. Chief Complaint: f/u hip fracture Interval history: Mar 07 Patient tripped over a garden hose this morning. She fell onto her right knee and hip. She had pain in both joints. She did not have chest pain, was not dizzy, did not strike her head. There was no loss of consciousness. She is transported to the hospital, where she is found to have a subcapital right femoral neck fracture. From the emergency department she was taken directly to the operating room for repair by Dr. Gomez. When I see the patient, she is postop, somnolent and cannot give much further history. Mar 08 Patient awake and alert this morning. Confirms that she tripped over a garden hose when she was at her in-laws. Hoping she'll be able to return home or stay with her daughter and not have to go to a skilled facility. Pain is generally controlled. Starting to work with physical therapy. Mar 09 Up in chair, feels pretty good, though has poor appetite. Not much by mouth intake. Urine output is low. Catheter remains in place to accurately monitor output. Mar 10 Appetite improving, urine output picking up. Pride catheter discontinued. Working for placement in rehabilitation. Pain is controlled. - Constitutional Vitals: Vital Signs Temp Pulse Resp BP Pulse Ox 98.4 F 91 H 16 104/69 100 03/10/17 15:42 03/10/17 03:05 03/10/17 15:42 03/10/17 15:42 03/10/17 15:42 Period Temp Pulse Resp BP Sys/Huizar Pulse Ox Last 24 Hr 97.6 F-98.4 F 82-91 16-16 93-113/54-76 95-100 Intake and Output 03/10/17 03/10/17 03/10/17 05:59 13:59 21:59 Intake Total 250 / 250 240 / 240 700 / 700 Output Total 275 / 275 500 / 500 100 / 100 Balance -25 / -25 -260 / -260 600 / 600 Intake & Output: Intake & Output 03/10/17 03/10/17 03/10/17 05:59 13:59 21:59 Intake Total 250 / 250 240 / 240 700 / 700 Output Total 275 / 275 500 / 500 100 / 100 Balance -25 / -25 -260 / -260 600 / 600 Intake: Oral 250 / 250 240 / 240 700 / 700 Output: Urine Catheter Amount 275 / 275 500 / 500 Void Amount 100 / 100 Other: Meal Lunch Percent of Meal Consumed 25% Feeding Ability Assist with Tray Set Up # Bowel Movements 0 Exam: General: Sitting up in a chair, eating lunch Chest: Clear, unlabored Cardio vascular: Irregular, no murmur Abdomen: Active bowel sounds Musculoskeletal: Right surgical wound with dressing in place, dressings are clean and dry Neuro: Alert, moves all extremities though generally weak. Medical - PN: Obj Da - Labs CBC & Chem 7: 03/10/17 04:47 03/10/17 04:47 Labs: Abnormal Lab Results 03/10/17 03/10/17 03/09/17 04:47 04:47 04:30 Hgb 8.0 L Hct 24.0 L Carbon Dioxide Glucose 122 H 137 H Calcium 8.0 L 7.8 L 03/09/17 03/08/17 03/08/17 04:30 04:05 04:05 Hgb 8.8 L 10.9 L Hct 26.3 L 32.2 L Carbon Dioxide 21 L Glucose 153 H Calcium 8.1 L Meds: Medications Hydrocodone Bitart/Acetaminophen ([place] 5/325mg) 0 tab PO Q4HP PRN PRN Reason: PAIN LEVEL 3-6 Last Admin: 03/10/17 14:30 Dose: 2 tab Bisacodyl (Dulcolax) 10 mg [place] Q2-3DAYS PRN PRN Reason: Constipation Docusate Sodium (Colace) 100 mg PO BID [facility] Last Admin: 03/10/17 08:49 Dose: 100 mg Donepezil HCl (Aricept) 10 mg PO HS [facility] Last Admin: 03/09/17 21:52 Dose: 10 mg Sodium Chloride (Sodium Chloride 0.9%) 1,000 mls @ 100 mls/hr IV .Q10H [facility] Last Admin: 03/10/17 18:37 Dose: Not Given Magnesium Hydroxide (Milk Of Magnesia) 30 ml PO BIDP PRN PRN Reason: Constipation Methocarbamol (Robaxin) 750 mg PO Q6HP PRN PRN Reason: Muscle Spasm Last Admin: 03/09/17 21:52 Dose: 750 mg Metoprolol Succinate (Toprol Xl) 25 mg PO DAILY [facility] Last Admin: 03/10/17 08:49 Dose: 25 mg Morphine Sulfate (Morphine) 0 mg IV Q1HP PRN PRN Reason: PAIN LEVEL > 6 Last Admin: 03/08/17 22:50 Dose: 4 mg Ondansetron HCl (Zofran) 4 mg IV Q4HP PRN PRN Reason: Nausea And Vomiting Ondansetron HCl (Zofran Odt) 4 mg SL Q4HP PRN PRN Reason: Nausea And Vomiting Polyethylene Glycol (Miralax) 17 gm PO DAILYP PRN PRN Reason: Constipation Rivaroxaban (Xarelto) 20 mg PO QAC [facility] Last Admin: 03/10/17 08:49 Dose: 20 mg Senna (Senokot) 2 tab PO HS [facility] Last Admin: 03/09/17 21:52 Dose: 2 tab Sertraline HCl (Zoloft) 100 mg PO DAILY [facility] Last Admin: 03/10/17 08:49 Dose: 100 mg Sodium Biphosphate/Sodium Phosphate (Fleets Adult) 1 dose NJ Q3-4DAYS PRN PRN Reason: Constipation Throat Lozenges (Cepacol) 1 lozenge PO PRN PRN PRN Reason: Sore Throat Verapamil HCl (Calan Sr) 240 mg PO DAILY [facility] Last Admin: 03/10/17 08:49 Dose: 240 mg Medical - PN: A/P (1) Intertrochanteric fracture of right hip Status: Acute Current Visit: Yes (2) Atrial fibrillation Status: Chronic Current Visit: Yes (3) Hypertension Status: Chronic Current Visit: Yes (4) Cognitive impairment Status: Chronic Current Visit: Yes - Narrative A/P Narrative: 77-year-old female with ground-level fall and right hip fracture. Right intertrochanteric hip fracture. POD#3 after repair. Plan: Continue with PT, pain control Elevated lactate at presentation (2.6). No evidence of sepsis. Resolved after IVF. Atrial fibrillation. On metoprolol and verapamil for rate control. Also on Xarelto for stroke prophylaxis. At risk for bleeding due to Xarelto therapy, hemoglobin dropped to 10.9-8.8-8.0, but no evidence of bleeding at operative site. Plan: Xarelto resumed, continue to monitor hemoglobin. Transfuse if needed. Hypertension. Plan: Continue home regimen. Cognitive impairment/dementia. At risk for delirium in the postoperative period. Plan: Continue Aricept, supportive care, try to minimize [employer] active medications. Low urine output. Resolved as PO intake increased. Pride d/c'ed
[2017-03-10] MEDS: DONEPEZIL 10 MG TABLET PO SCH (20:58)
[2017-03-10] MEDS: SENNOSIDES 1 TABLET PO SCH (20:58)
[2017-03-11] MEDS: HYDROcodone/APAP 5/325MG TABLET PO PRN ×2 (02:00→07:04)
[2017-03-11] MEDS: DOCUSATE SODIUM 100 MG CAPSULE PO SCH (08:30)
[2017-03-11] MEDS: VERAPAMIL 120 MG TAB.XL.24H PO SCH (08:30)
[2017-03-11] MEDS: SERTRALINE 100 MG TABLET PO SCH (08:30)
[2017-03-11] MEDS: RIVAROXABAN 20 MG TABLET PO SCH (08:30)
[2017-03-11] MEDS: METOPROLOL SUCCINATE 25 MG TAB.XL.24H PO SCH (08:30)
--- NOTE | 2017-03-11 08:50 | Discharge Summary ---
Medical - DS: Prov Patient information: Note initiated : 03/11/17 at 8:48 am Service Date, if different from initiated Date: [] Patient: Iram Franco 77 y/o F admitted on 03/07/17 for Fall, R Hip Pain/ Right Hip Fracture. Date of admission: 03/07/17 19:36 Discharge date: 03/11/17 Admitting clinician: Enid Rodriguez Consults: 03/07/17 16:44 Consult to Physician [CONS] Stat Comment: Consulting Provider: Steve Gomez Reason For Exam: Physician to Consult Consult to Physician [CONS] Stat Comment: Consulting Provider: Enid Rodriguez Reason For Exam: Physician to Consult Discharging clinician: Enid Rodriguez Medical - DS: Meds - Discharge Medications Prescriptions: HYDROcodone/APAP 5/325MG [[place] 5/325Mg] 1 tab PO Q4HP PRN #20 tab PRN Reason: Pain Methocarbamol [Robaxin] 750 mg PO Q6HP PRN #20 tab PRN Reason: Muscle Spasm Active and Home Medications: Home Medications Donepezil [Aricept] 10 mg PO HS 04/04/15 [History Confirmed 03/07/17 Last Taken Unknown] Metoprolol Succinate [Toprol Xl] 25 mg PO DAILY 04/04/15 [History Confirmed Last Taken Unknown] Rivaroxaban [Xarelto] 20 mg PO DAILY 04/04/15 [History Confirmed 03/07/17 Last Taken Unknown] Verapamil [Calan Sr] 240 mg PO DAILY 04/04/15 [History Confirmed 03/07/17 Last Taken Unknown] Sertraline [Zoloft] 100 mg PO DAILY 03/07/17 [History Confirmed 03/07/17 Last Taken Unknown] Docusate Sodium [Colace] 100 mg PO BID capsule 03/10/17 [Rx Last Taken Unknown] HYDROcodone/APAP 5/325MG [[place] 5/325Mg] 1 tab PO Q4HP PRN #20 tab 03/10/17 [Rx Last Taken Unknown] Magnesium Hydroxide [Milk of Magnesia] 30 ml PO BIDP PRN oral.susp 03/10/17 [ Rx Last Taken Unknown] Methocarbamol [Robaxin] 750 mg PO Q6HP PRN #20 tab 03/10/17 [Rx Last Taken Unknown] Polyethylene Glycol 3350 [Miralax] 17 gm PO DAILYP PRN packet 03/10/17 [Rx Last Taken Unknown] Sennosides [Senokot] 2 tab PO HS tablet 03/10/17 [Rx Last Taken Unknown] Medical - DS: Hosp Hospital course: Mrs. Franco is a 77 year old F admitted with right hip fracture after a ground level fall. Mar 07 Patient tripped over a garden hose this morning. She fell onto her right knee and hip. She had pain in both joints. She did not have chest pain, was not dizzy, did not strike her head. There was no loss of consciousness. She is transported to the hospital, where she is found to have a subcapital right femoral neck fracture. From the emergency department she was taken directly to the operating room for repair by Dr. Gomez. When I see the patient, she is postop, somnolent and cannot give much further history. Mar 08 Patient awake and alert this morning. Confirms that she tripped over a garden hose when she was at her son-in-laws. Hoping she'll be able to return home or stay with her daughter and not have to go to a skilled facility. Pain is generally controlled. Starting to work with physical therapy. Mar 09 Up in chair, feels pretty good, though has poor appetite. Not much by mouth intake. Urine output is low. Catheter remains in place to accurately monitor output. Mar 10 Appetite improving, urine output picking up. Pride catheter discontinued. Working for placement in rehabilitation. Pain is controlled. Mar 11 Appetite continues to improve, pain controlled, stable for discharge. In summary: Patient is 77-year-old female who had a ground-level fall after tripping on a hose with right intertrochanteric femur fracture. She went to the OR on the day of admission and had a cephalometric Elvia the nail placed by Dr. Gomez. She tolerated the procedure well. Postoperatively she had initially poor appetite and poor oral intake, though those were improving significantly at discharge. She remained in atrial fibrillation, was resumed on her rivaroxaban postoperatively. Rate remained controlled. Hemoglobin was monitored, it did drift down but stabilized in the 8 g/dL range. Discharge diagnosis: Right intertrochanteric hip fracture - Time Spent with Patient Total time spent providing and/or coordinating discharge services: Greater than 30 minutes Medical - DS: Exam - Constitutional Vitals: Vital Signs Temp Pulse Resp BP Pulse Ox 03/11/17 08:00 98.6 F 77 18 92/67 98 03/11/17 03:10 98.5 F 86 12 102/69 95 03/11/17 00:00 97.4 F 75 12 110/63 94 03/10/17 20:00 97.8 F 78 14 114/64 95 03/10/17 15:42 98.4 F 16 104/69 100 03/10/17 11:06 98.0 F 16 98/54 98 Intake and Output 03/10/17 03/11/17 03/11/17 21:59 05:59 13:59 Intake Total 700 / 700 200 / 200 240 / 240 Output Total 100 / 100 200 / 200 Balance 600 / 600 200 / 200 40 / 40 Intake: Oral 700 / 700 200 / 200 240 / 240 Output: Void Amount 100 / 100 200 / 200 Other: Meal Dinner Percent of Meal Consumed 25% Feeding Ability Assist with Tray Set Up # Bowel Movements 0 Weight 138 lb Additional comments: General: Sitting up in chair, eating breakfast, in pretty good spirits Chest: Clear Cardiac vascular: Irregularly irregular, no murmur or gallop Abdomen: Soft, nontender Musculoskeletal: Right hip wound intact, extremity neurovascularly intact Neuro: Alert, appropriate, moves all extremities. Medical - DS: Data Procedures and tests throughout hospitalization: 03/07/2017 Right hip cephalomedullary nail Grafts/Implants: Yes Anesthesia: GETA Complications: none Surgeon: Steve Gomez Chain Maker: Carolyn Ariza - Impressions Right hip XR: IMPRESSION: Intertrochanteric fracture of the proximal right femur Right knee XR: IMPRESSION: Mild arthritis. No fracture Medical - DS: A/P - Patient/Caregiver Discharge Instructions Activity: as per physical therapy, increase activity as tolerated (Weight bearing is as tolerated.) Diet: Regular Diet Additional Instructions: Discharge Instructions: Do the exercises at home that physical therapy gave you throughout the day. Weight bearing as tolerated. You have the Aquacel Ag dressing, leave in place for 7 days then remove. If dressing becomes soiled (turns black), remove and use gauze 4x4 dressing and silvasorb ointment and change daily. Keep incision clean and dry. You may start showering on post op day #2. To avoid constipation while taking any narcotic pain medication, take an over the counter stool softener/laxative. Use ice packs as directed, on for 20 minutes at a time throughout the day. This and elevation will help with pain and swelling. Call your physician for fevers above 100.5 or pain not controlled by medication. Your prescriptions are with your discharge information. Some medications were electronically transmitted to your pharmacy of choice. Prescriptions: HYDROcodone/APAP 5/325MG [[place] 5/325Mg] 1 tab PO Q4HP PRN #20 tab PRN Reason: Pain Methocarbamol [Robaxin] 750 mg PO Q6HP PRN #20 tab PRN Reason: Muscle Spasm Other Amb Orders: OT Discharge Order Location: Determined By Patient Physical Therapy at Discharge - General Location: Determined By Patient - Problem Maintenance (1) Intertrochanteric fracture of right hip Status: Acute Qualifiers: Encounter type: initial encounter Fracture type: closed Fracture alignment: nondisplaced Qualified Code(s): S72.144A - Nondisplaced intertrochanteric fracture of right femur, initial encounter for closed fracture (2) Atrial fibrillation Status: Chronic Qualifiers: Atrial fibrillation type: chronic Qualified Code(s): I48.2 - Chronic atrial fibrillation (3) Hypertension Status: Chronic Qualifiers: Hypertension type: essential hypertension Qualified Code(s): I10 - Essential (primary) hypertension (4) Cognitive impairment Status: Chronic - Follow up Plan Follow up with: Steve Gomez MD [Physician] - 03/18/17 2:00 pm (Check in at 1:40 pm.) Disposition: Xfer SNF Prognosis: Good Rehab Potential: Good I certify that the patient requires SNF services: Yes Overall status at discharge: patient is not back to baseline
== END 2017-03-11 10:35 | DRG 482 ==
LOC: ED 14:45 → SUR 17:26 → MEDSUR 19:36
PROVIDERS: ADMIT Orthopaedic Surgery Sports Medicine; ATTEND Internal Medicine

== ENCOUNTER 2020-06-15 20:51 | Observation (INO) ==
--- NOTE | 2020-06-15 22:36 | Emergency Department Note ---
Abdominal Pain HPI General Chief Complaint: Abdominal Pain Stated Complaint: abdominal pain Time Seen by Provider: 06/15/20 21:43 Source: patient Mode of arrival: ambulatory Limitations: no limitations History of Present Illness HPI Narrative: Narrative: Patient is an 80-year-old female with significant dementia the results in communication issues. She lives with her daughter who is primary caregiver. Patient has been with several days to a week of lower abdominal discomfort and complaint of dysuria. She has not had any fever. She has not had any nausea vomiting or diarrhea. Daughter notes that it is difficult to get her to do proper hygiene as far as wiping or care. She has not been with any apparent difficulty breathing. She has been with normal oral intake and activity. Patient has had prior history of urinary tract infection but daughter did not feel that this was a chronically recurrent issue. No further history or review of systems is possible secondary to patient's significant dementia. Further history from daughter notes that she had fallen to months ago on the ice. It sounds as though her feet went out from under her and she landed on her buttocks. She had had x-rays at an outside facility afterwards and there was no reported injury. Patient's daughter is not aware of any other fall or injury. Patient's daughter further notes that she has been having difficulty in passing a bowel movement with more minimal output. She has had prior history of hemorrhoids and hemorrhoid surgery. Related Data Home Medications Medication Instructions Recorded Confirmed Xarelto 20 mg PO DAILY 04/04/15 06/16/20 metoprolol succinate 25 mg PO DAILY 04/04/15 06/16/20 diltiazem HCl 240 mg PO QDAY 06/16/20 06/16/20 lisinopril 20 mg PO QDAY 06/16/20 06/16/20 olanzapine 2.5 mg PO QDAY 06/16/20 06/16/20 Allergies Allergy/AdvReac Type Severity Reaction Status Date / Time adhesive tape AdvReac Hives Verified 06/16/20 04:40 codeine AdvReac Confusion Verified 06/16/20 04:40 Penicillins AdvReac Hives Verified 06/16/20 04:40 Review of Systems ROS ROS Narrative: Narrative: No further history or review of systems is possible secondary to patient's significant demen [facility] Narrative Patient History Narrative: Narrative: Medical/Surgical/Family History All Active Problems (Updated 06/16/20 @ 02:48 by Davie Mejia MD) UTI (urinary tract infection) (Acute) Intertrochanteric fracture of right hip (Acute) Hypertension (Chronic) Atrial fibrillation (Chronic) Cognitive impairment (Chronic) Gastritis (Acute) Closed compression fracture of L1 vertebra (Acute) Fecal impaction in rectum (Acute) Acute proctitis (Acute) Superior mesenteric artery stenosis (Acute) Medical History (Updated 06/16/20 @ 02:48 by Davie Mejia MD) UTI (urinary tract infection) Social History Smoking Status: Never smoker Exam Narrative Narrative: Narrative: General: Alert, Nontoxic, accompanied by supportive daughter. Patient is not verbalizing responses but does give some visual cues as far as exam findings. She follows direction and is cooperative with exam. HEENT: NCAT, PERRL, Oral pharynx with moist mucus membranes. No pharyngeal eryth radhika. No conjunctival pallor Neck: Supple, No lymphadenopathy Chest: Stable Heart: Regular rate and rhythm without murmur Lungs: Clear to auscultation bilaterally Abdomen: Soft, nondistended, nontender in any focal area over the belly. There does not appear to be any mass no peritonitis but patient does seem to have some degree of apprehension with the abdominal exam. Bowel sounds are normal tone. Rectal exam shows no large amount of hardened stool within the rectal vault. : No bladder distention Back: Nontraumatic, No CVA tenderness to palpation. Palpation of the spine does not reveal any point tenderness over the spine. There is no ecchymosis or signs of more acute injury. When patient is asked to sit up from the gurney she promptly sits forward sitting upright without obvious distress with the movement. Skin: No rash or lesion Extremity: No cyanosis, there is mild bilateral ankle edema, pulses 2+ radial Neurologic: Moves all extremities in appropriate coordinated fashion. General Limitations: no limitations Course Vital Signs Vital signs: Vital Signs Temperature 97.8 F 06/15/20 20:52 Pulse Rate 55 L 06/15/20 20:52 Respiratory Rate 18 06/15/20 20:52 Blood Pressure 128/78 06/15/20 20:52 Pulse Oximetry (%) 96 06/15/20 20:52 Temperature 97.8 F 06/15/20 20:52 Pulse Rate 120 H 06/16/20 04:21 Respiratory Rate 16 06/16/20 03:44 Blood Pressure 136/81 06/16/20 04:31 Pulse Oximetry (%) 92 06/16/20 04:21 MDM MDM Narrative Medical decision making narrative: Narrative: Patient is with negative urine dip and thus we will proceed with CT scan of the abdomen and pelvis given lack of clear-cut cause for her symptomatology. CT scan demonstrated an area of mesenteric vascular stenosis at the superior mesenteric artery as well as proximal celiac axis but no evidence of occlusion or bowel ischemia. There is noted rectal proctitis with large hyperdense stool within the rectum consistent with exam. The socials showed the rectum to be distended to 9 cm. Further there was moderate compression fracture of the L1 vertebral body with moderate spinal canal narrowing in this area. Patient on exam is without evidence of more acute lumbar fracture seems to move about well without this being of proximate cause of her symptoms. After IV fluids she is appearing more comfortable as far as general abdominal symptoms and thus I have less concern for bowel ischemia but still must be a consideration. Large amount of stool was removed from the rectal vault. Further enema was completed without further stool removal and patient is contin ued discomfort and pain in the rectal area. With attempt at placement of the enema catheter it was encountering hard stool further up in the rectal vault. She will be given lactulose p.o. as well as oral and continued IV hydration. She was given IV fluid hydration here. She will follow up with orthopedics regarding the L1 compression fracture. Given the proctitis as well as the persistent fecal impaction I believe that she will require further bowel care and have asked hospitalist for further observation type admission to allow this. Lab Data Result diagrams: 06/15/20 23:25 06/15/20 23:24 Labs: Lab Results 06/15/20 06/15/20 06/15/20 Range/Units 22:20 23:24 23:24 WBC (4.5-11.0) K/mcL RBC (4.00-5.20) M/mcL Hgb (12.0-15.0) g/dL Hct (36.0-48.0) % MCV (80.0-100.0) fL MCH (26.0-34.0) pg MCHC (31.0-36.0) g/dL RDW (11.5-14.5) % Plt Count (140-440) K/mcL MPV (7.4-10.4) fL Neut % (Auto) (38.0-78.0) % Lymph % (Auto) (15.0-49.0) % [place] % (Auto) (1.0-12.0) % Eos % (Auto) (0.0-7.0) % Baso % (Auto) (0.0-2.0) % Lymph # (Auto) (1.50-4.80) K/mcL [place] # (Auto) (0.10-0.90) K/mcL Eos # (Auto) (0.00-0.70) K/mcL Baso # (Auto) (0.00-0.20) K/mcL Absolute Neutrophils (1.80-8.00) K/mcL PT (11.9-14.5) sec INR (0.9-1.1) VBG Lactic Acid 1.0 (0.5-2.0) mmol/L Sodium 136 (133-145) mmol/L Potassium 4.1 (3.3-5.1) mmol/L Chloride 103 (96-108) mmol/L Carbon Dioxide 23 (22-30) mmol/L Anion Gap 10.0 (8.0-16.0) BUN 38 H (8-23) mg/dL Creatinine 0.9 (0.6-1.1) mg/dL POC Creatinine 0.6 (0.6-1.2) mg/dL GFR Calculation 60 Glucose 98 (70-105) mg/dL Calcium 9.4 (8.6-10.4) mg/dL Total Bilirubin 0.3 (0.1-1.0) mg/dL AST 43 H (<32) U/L ALT 41 H (<40) U/L Alkaline Phosphatase 140 H (39-117) U/L Troponin T (<0.03) ng/mL Total Protein 6.2 (5.9-8.4) gm/dL Albumin 3.6 (3.2-5.2) gm/dL Globulin 2.6 (2.2-3.7) gm/dL Albumin/Globulin Ratio 1.4 (1.0-2.3) Lipase 65 H (7-60) U/L Urine Color Yellow Urine Appearance Clear (Clear) Urine pH 5.5 (5.0-9.0) Ur Specific [place] 1.020 (1.000-1.035) Urine Protein Negative (Negative) mg/dL Urine Glucose (UA) Negative (Negative) mg/dL Urine Ketones Negative (Negative) mg/dL Urine Occult Blood Trace-intact A (Negative) janice/mcL Urine Nitrate Negative (Negative) Urine Bilirubin Negative (Negative) mg/dL Urine Urobilinogen Normal mg/dL Ur Leukocyte Esterase Negative (Negative) /ug Urine RBC 6 H (0-3) /hpf Urine WBC 1 (0-4) /hpf Ur Squamous Epith Cells 1 (0-4) /hpf Urine Bacteria 0 (0) /hpf Ur Culture Indicated? No 06/15/20 06/15/20 06/15/20 Range/Units 23:25 23:25 23:26 WBC 7.3 (4.5-11.0) K/mcL RBC 4.52 (4.00-5.20) M/mcL Hgb 14.0 (12.0-15.0) g/dL Hct 43.3 (36.0-48.0) % MCV 95.8 (80.0-100.0) fL MCH 31.0 (26.0-34.0) pg MCHC 32.3 (31.0-36.0) g/dL RDW 13.1 (11.5-14.5) % Plt Count 177 (140-440) K/mcL MPV 10.7 H (7.4-10.4) fL Neut % (Auto) 65.3 (38.0-78.0) % Lymph % (Auto) 24.6 (15.0-49.0) % [place] % (Auto) 8.9 (1.0-12.0) % Eos % (Auto) 0.7 (0.0-7.0) % Baso % (Auto) 0.5 (0.0-2.0) % Lymph # (Auto) 1.80 (1.50-4.80) K/mcL [place] # (Auto) 0.65 (0.10-0.90) K/mcL Eos # (Auto) 0.05 (0.00-0.70) K/mcL Baso # (Auto) 0.04 (0.00-0.20) K/mcL Absolute Neutrophils 4.79 (1.80-8.00) K/mcL PT 18.0 H (11.9-14.5) sec INR 1.4 H (0.9-1.1) VBG Lactic Acid (0.5-2.0) mmol/L Sodium (133-145) mmol/L Potassium (3.3-5.1) mmol/L Chloride (96-108) mmol/L Carbon Dioxide (22-30) mmol/L Anion Gap (8.0-16.0) BUN (8-23) mg/dL Creatinine (0.6-1.1) mg/dL POC Creatinine (0.6-1.2) mg/dL GFR Calculation Glucose (70-105) mg/dL Calcium (8.6-10.4) mg/dL Total Bilirubin (0.1-1.0) mg/dL AST (<32) U/L ALT (<40) U/L Alkaline Phosphatase (39-117) U/L Troponin T < 0.01 (<0.03) ng/mL Total Protein (5.9-8.4) gm/dL Albumin (3.2-5.2) gm/dL Globulin (2.2-3.7) gm/dL Albumin/Globulin Ratio (1.0-2.3) Lipase (7-60) U/L Urine Color Urine Appearance (Clear) Urine pH (5.0-9.0) Ur Specific [place] (1.000-1.035) Urine Protein (Negative) mg/dL Urine Glucose (UA) (Negative) mg/dL Urine Ketones (Negative) mg/dL Urine Occult Blood (Negative) janice/mcL Urine Nitrate (Negative) Urine Bilirubin (Negative) mg/dL Urine Urobilinogen mg/dL Ur Leukocyte Esterase (Negative) /ug Urine RBC (0-3) /hpf Urine WBC (0-4) /hpf Ur Squamous Epith Cells (0-4) /hpf Urine Bacteria (0) /hpf Ur Culture Indicated? Discharge Plan Patient/Caregiver Discharge Instructions Pt seen by [facility]ENE[facility]ASURER/PA only: No Clinical Impression: Closed compression fracture of L1 vertebra, Fecal impaction in rectum, Acute proctitis, Superior mesenteric artery stenosis Instructions: Proctitis (ED), Vertebral Compression Fracture (ED), Fecal Impaction (ED), Ischemic Colitis (ED), Procedures for Compression Fractures of the Spine (DC) Patient Disposition: Xfer As Outpt/Obs ([facility]) Condition: Fair Follow up with: Stas Perales MD [Physician] - Penny Pandey PA-C [Primary Care Provider] - Prescriptions: No Action metoprolol succinate 25 MG tablet extended release 24 hr 25 mg PO DAILY RF: 0 Xarelto 20 MG tablet 20 mg PO DAILY RF: 0 lisinopril 20 mg Tablet 20 mg PO QDAY RF: 0 diltiazem HCl 240 mg Capsule,Extended Release 24 Hr 240 mg PO QDAY RF: 0 olanzapine 2.5 mg Tablet 2.5 mg PO QDAY RF: 0
[2020-06-15] MEDS ORDERED: ONDANSETRON 4 MG/2 ML VIAL IV ONE (22:57)
[2020-06-15] MEDS ORDERED: LACTATED RINGERS 1,000 ML IV ONE (22:57)
[2020-06-15] MEDS: morphine 2 MG/ML VIAL IV PRN (23:30)
[2020-06-16 00:22] LABS: POC Creatinine 0.6 mg/dL (0.6-1.2)
[2020-06-16] MEDS: morphine 2 MG/ML VIAL IV PRN (00:25)
[2020-06-16 00:32] LABS: Basophils # (Auto) 0.04 K/mcL (0.00-0.20); Basophils % (Auto) 0.5 % (0.0-2.0); Eosinophils # (Auto) 0.05 K/mcL (0.00-0.70); Eosinophils % (Auto) 0.7 % (0.0-7.0); Hematocrit 43.3 % (36.0-48.0); Lymphocytes % (Auto) 24.6 % (15.0-49.0); Mean Cell Volume 95.8 fL (80.0-100.0); Mean Corpuscular HGB Conc 32.3 g/dL (31.0-36.0); Mean Platelet Volume 10.7 fL (7.4-10.4); Monocytes # (Auto) 0.65 K/mcL (0.10-0.90); Monocytes % (Auto) 8.9 % (1.0-12.0); Neutrophils % (Auto) 65.3 % (38.0-78.0); Platelet Count 177 K/mcL (140-440); RBC 4.52 M/mcL (4.00-5.20); Red Cell Distribution Width 13.1 % (11.5-14.5); WBC 7.3 K/mcL (4.5-11.0)
[2020-06-16 00:46] LABS: INR 1.4 (0.9-1.1)
[2020-06-16 01:00] LABS: ALT/SGPT 41 U/L (<40); AST/SGOT 43 U/L (<32); Albumin 3.6 gm/dL (3.2-5.2); Albumin/Globulin Ratio 1.4 (1.0-2.3); Alkaline Phosphatase 140 U/L (39-117); Bilirubin,Total 0.3 mg/dL (0.1-1.0); Blood Urea Nitrogen 38 mg/dL (8-23); Calcium 9.4 mg/dL (8.6-10.4); Carbon Dioxide 23 mmol/L (22-30); Chloride 103 mmol/L (96-108); Globulin 2.6 gm/dL (2.2-3.7); Glomerular Filtration Rate 60; Glucose 98 mg/dL (70-105)
[2020-06-16 01:18] LABS: Appearance,Urine Clear (Clear); Bacteria,Urine 0 /hpf (0); Bilirubin,Urine Negative (Negative); Color,Urine Yellow; Culture Indicated,Urine No; Glucose,Urine (UA) Negative (Negative); Ketones,Urine Negative (Negative); Leukocyte Esterase,Urine Negative /ug (Negative); Nitrate,Urine Negative (Negative); PH,Urine 5.5 (5.0-9.0); Protein,Urine Negative (Negative); Urine Blood Trace-intact ery/mcL (Negative); Urine RBC 6 /hpf (0-3); Urine Squamous Epithelial Cell 1 /hpf (0-4); Urine WBC 1 /hpf (0-4); Urobilinogen,Urine Normal
[2020-06-16] MEDS ORDERED: HYDROmorphone 0.5 MG/0.5 ML SYRINGE IV PRN (01:34)
[2020-06-16] MEDS ORDERED: LACTATED RINGERS 1,000 ML IV ONE (01:34)
[2020-06-16] MEDS ORDERED: MINERAL OIL 1 DOSE ENEMA PR ONE (02:33)
[2020-06-16] MEDS ORDERED: LACTULOSE 20 GM/30 ML ORAL.SOL PO ONE (05:00)
--- NOTE | 2020-06-16 06:06 | Cat Scan Report ---
INDICATION: abdominal pain - generalized in dementia pt. COMPARISON: Previous lumbar spine dated 05/07/2020. Previous abdominal and pelvic CT scan dated 05/21/2017 TECHNIQUE: Axial images were obtained through the abdomen and pelvis. Sagittally and coronally reformatted images. 70 mL Isovue 370 injected intravenously. Oral contrast material was not administered FINDINGS: Examination was initially interpreted by [facility] Lung bases:Negative. No pulmonary parenchymal nodule. No pleural fluid or pericardial fluid. There is cardiomegaly. There is right atrial and right ventricular enlargement. Left atrium is also enlarged. Liver:Negative. No focal intrahepatic mass. No focal abnormality. Liver contour is smooth. No evidence for cirrhosis Gallbladder, bilary:Previous cholecystectomy. There is mild intrahepatic bile duct dilatation. Common bile duct is dilated and measures 15 mm in the michael hepatis. Common bile duct tapers distally to approximately 8 mm. No detectable choledocholithiasis Spleen:No splenomegaly. Normal enhancement of splenic and portal veins. Pancreas:No pancreatic mass. No peripancreatic abnormality Adrenal glands:Negative Kidneys, ureters, bladder: Kidneys are atrophic. No hydronephrosis. No loss solid renal mass. No detectable calculi on this postcontrast enhanced examination There is no hydroureter. No ureteral stone There is a Pride catheter within the urinary bladder. Bladder is collapsed. No detectable stones Gastrointestinal:No detectable colonic mass. There is no diverticulitis. There is prominent fecal material. There is very prominent formed stool within the distal sigmoid colon and rectum. Fecal impaction is suspected. There is no significant pneumatosis. Small bowel is negative. No mechanical small bowel obstruction. Previous gastric surgery. Estimated been prior gastric sleeve procedure or other surgical procedure. Appearance is unchanged since 05/21/2017 Appendix: The appendix is still not visualized. No evidence for appendicitis Vascular:No abdominal aortic aneurysm. There is calcification of the origin of the superior mesenteric artery. There is noncalcified plaque. There is stenosis of the proximal SMA with short segment greater than 50% diameter stenosis. There is no complete occlusion. There is stenosis of the origin of the celiac trunk. This is felt to be hemodynamically significant. Clinical correlation for symptoms of mesenteric angina recommended Lymphatic:No retroperitoneal or mesenteric adenopathy Mesentery, peritoneum: No free intraperitoneal fluid. No mesenteric or retroperitoneal mass. No intra-abdominal abscess Reproductive:Uterus is not visualized. No adnexal mass Musculoskeletal:There is an L1 compression deformity with mild retropulsion. This appears unchanged since 05/07/2020 no acute lumbar compression fracture. There is sclerosis in both sacral ala which may indicate insufficiency fractures. No displacement. Pelvis is negative. There is a gamma nail configuration within the right hip. No abdominal wall or inguinal hernia IMPRESSION: 1. Cardiomegaly 2. Previous cholecystectomy. Mild intra and extrahepatic bile duct dilatation 3. Atherosclerotic disease. Probable hemodynamically significant stenoses at the origins of the superior mesenteric artery and celiac trunk 4. Renal atrophy. No hydronephrosis. No renal mass 5. L1 compression fracture, unchanged since 05/07/2020 6. Previous gastric surgery 7. Prominent fecal material within the distal sigmoid colon and rectum. Fecal impaction suspected 8. Sclerosis and postsurgical wings. Possible sacral insufficiency fractures The exam was performed using radiation dose optimization techniques including, but not limited to, automated exposure control, adjustment of the mA and/or kV according to patient size and use of iterative reconstruction technique. Interpreted and Authenticated by: Steve Hutchinson 06/16/20
[2020-06-16] MEDS: LACTULOSE 20 GM/30 ML ORAL.SOL PO SCH ×2 (09:38→15:00)
[2020-06-16] MEDS ORDERED: MELATONIN 3 MG TABLET PO SCH (17:15)
--- NOTE | 2020-06-16 17:25 | Internal Med History&Physical ---
HPI History of Present Illness Patient information: Note initiated : 06/16/20 at 5:14 pm Service Date, if different from initiated Date: [] Patient: Irma Franco a 80 y/o F admitted on 06/16/20 for abdominal pain. Chief Complaint: [] History of present illness: Irma Benz is an 80-year-old female with a history of hypertension, atrial fibrillation, CVA, severe cognitive impairment-likely dementia, recent L1 compression fracture admitted to observation for constipation. Constipation quickly resolved with bowel regimen. The plan is to discharge to her daughter's home however her daughter needs more time to prepare her house for the patient to live with her. Review of systems Unable to complete due to severe cognitive impairment. PFSH PFSH All Active Problems (Updated 06/16/20 @ 02:48 by Davie Mejia MD) UTI (urinary tract infection) (Acute) Intertrochanteric fracture of right hip (Acute) Hypertension (Chronic) Atrial fibrillation (Chronic) Cognitive impairment (Chronic) Gastritis (Acute) Closed compression fracture of L1 vertebra (Acute) Fecal impaction in rectum (Acute) Acute proctitis (Acute) Superior mesenteric artery stenosis (Acute) Medical History (Updated 06/16/20 @ 02:48 by Davie Mejia MD) UTI (urinary tract infection) MEDS/ALLERGIES Home Medications and Allergies Home Medications Medication Instructions Recorded Confirmed Type Xarelto 20 mg PO DAILY 04/04/15 06/16/20 History metoprolol succinate 25 mg PO DAILY 04/04/15 06/16/20 History diltiazem HCl 240 mg PO QDAY 06/16/20 06/16/20 History lisinopril 20 mg PO QDAY 06/16/20 06/16/20 History olanzapine 2.5 mg PO QDAY 06/16/20 06/16/20 History Allergies Allergy/AdvReac Type Severity Reaction Status Date / Time adhesive tape Allergy Mild Hives Verified 06/16/20 07:52 Penicillins Allergy Mild Hives Verified 06/16/20 07:52 codeine AdvReac Mild Confusion Verified 06/16/20 07:52 EXAM Constitutional Vitals: Temp Pulse Resp BP Pulse Ox 98.3 F 64 18 128/88 94 06/16/20 15:39 06/16/20 15:39 06/16/20 15:39 06/16/20 15:39 06/16/20 15:39 Additional findings Additional findings: Head: Atraumatic, normal inspection. Eyes: normal appearance, no scleral icterus. Neck: full ROM Respiratory: no respiratory distress. GI/Abdominal: no distention no guarding. Extremities: full range of motion, nontender. Neurological: CN II-XII intact, intact motor, intact sensation. Psychiatric: cognitive impairment likely severe Skin: warm, normal color DATA Data Completed and Pending Labs: Labs from last 24 hours 06/15/20 06/15/20 06/15/20 23:26 23:25 23:25 WBC 7.3 RBC 4.52 Hgb 14.0 Hct 43.3 MCV 95.8 MCH 31.0 MCHC 32.3 RDW 13.1 Plt Count 177 MPV 10.7 H Neut % (Auto) 65.3 Lymph % (Auto) 24.6 [place] % (Auto) 8.9 Eos % (Auto) 0.7 Baso % (Auto) 0.5 Lymph # (Auto) 1.80 [place] # (Auto) 0.65 Eos # (Auto) 0.05 Baso # (Auto) 0.04 Absolute Neutrophils 4.79 PT 18.0 H INR 1.4 H VBG Lactic Acid Sodium Potassium Chloride Carbon Dioxide Anion Gap BUN Creatinine POC Creatinine GFR Calculation Glucose Calcium Total Bilirubin AST ALT Alkaline Phosphatase Troponin T < 0.01 Total Protein Albumin Globulin Albumin/Globulin Ratio Lipase Urine Color Urine Appearance Urine pH Ur Specific [place] Urine Protein Urine Glucose (UA) Urine Ketones Urine Occult Blood Urine Nitrate Urine Bilirubin Urine Urobilinogen Ur Leukocyte Esterase Urine RBC Urine WBC Ur Squamous Epith Cells Urine Bacteria Ur Culture Indicated? 06/15/20 06/15/20 06/15/20 23:24 23:24 22:20 WBC RBC Hgb Hct MCV MCH MCHC RDW Plt Count MPV Neut % (Auto) Lymph % (Auto) [place] % (Auto) Eos % (Auto) Baso % (Auto) Lymph # (Auto) [place] # (Auto) Eos # (Auto) Baso # (Auto) Absolute Neutrophils PT INR VBG Lactic Acid 1.0 Sodium 136 Potassium 4.1 Chloride 103 Carbon Dioxide 23 Anion Gap 10.0 BUN 38 H Creatinine 0.9 POC Creatinine 0.6 GFR Calculation 60 Glucose 98 Calcium 9.4 Total Bilirubin 0.3 AST 43 H ALT 41 H Alkaline Phosphatase 140 H Troponin T Total Protein 6.2 Albumin 3.6 Globulin 2.6 Albumin/Globulin Ratio 1.4 Lipase 65 H Urine Color Yellow Urine Appearance Clear Urine pH 5.5 Ur Specific [place] 1.020 Urine Protein Negative Urine Glucose (UA) Negative Urine Ketones Negative Urine Occult Blood Trace-intact A Urine Nitrate Negative Urine Bilirubin Negative Urine Urobilinogen Normal Ur Leukocyte Esterase Negative Urine RBC 6 H Urine WBC 1 Ur Squamous Epith Cells 1 Urine Bacteria 0 Ur Culture Indicated? No A/P Narrative A/P Narrative: Assessment: 80-year-old female with a history of hypertension, atrial fibrillation, CVA, severe cognitive impairment-likely dementia, recent L1 compression fracture admitted to observation for constipation that resolved with a bowel regimen. Plan -Avoid constipation, daily MiraLAX. -Continue home lisinopril, olanzapine, Xarelto. -Melatonin at bedtime. -Delirium mitigation strategies. -Disposition: Home tomorrow to [facility]. Time Spent With Patient Time: Total time spent is greater than 50% in coordination of care (as documented) at patient's floor/unit and/or counseling patient: QUALITY VTE Deep Vein Thrombosis/Pulmonary Embolism Present on Admission: No
[2020-06-16] MEDS: OLANZapine 2.5 MG TABLET PO SCH (20:34)
[2020-06-16] MEDS: RIVAROXABAN 20 MG TABLET PO SCH (20:34)
[2020-06-16] MEDS: LISINOPRIL 20 MG TABLET PO SCH (20:34)
[2020-06-16] MEDS ORDERED: MAGNESIUM SULFATE 0 GM/0 ML BAG IV ONE (21:09)
[2020-06-17] MEDS: LISINOPRIL 20 MG TABLET PO SCH (08:04)
[2020-06-17] MEDS: RIVAROXABAN 20 MG TABLET PO SCH (08:04)
[2020-06-17] MEDS: OLANZapine 2.5 MG TABLET PO SCH (08:04)
[2020-06-17] MEDS ORDERED: METOPROLOL SUCCINATE 25 MG TAB.XL.24H PO SCH (09:00)
[2020-06-17] MEDS ORDERED: POLYETHYLENE GLYCOL 3350 17 GM PACKET PO SCH (09:00)
--- NOTE | 2020-06-17 09:09 | Discharge Summary ---
Discharge Provider Provider Patient information: Note initiated : 06/17/20 at 9:04 am Service Date, if different from initiated Date: [] Patient: Irma Franco 80 y/o F admitted on 06/16/20 for abdominal pain. Chief Complaint: [] Date of admission: 06/16/20 05:30 Discharge date: 06/17/20 Primary care physician: Penny Pandey Consults: 06/16/20 Consult to Physician [CONS] Stat Comment: Consulting Provider: Tad Gomez Reason For Exam: Physician to Consult Discharge Meds Discharge Medications Home Medications Xarelto 20 mg PO DAILY 04/04/15 [History Confirmed 06/16/20 Last Taken 06/15/20 08:00] metoprolol succinate 25 mg PO DAILY 04/04/15 [History Confirmed 06/16/20 Last Taken 06/15/20 08:00] lisinopril 20 mg PO QDAY 06/16/20 [History Confirmed 06/16/20 Last Taken 06/15/20 08:00] olanzapine 2.5 mg PO QDAY 06/16/20 [History Confirmed 06/16/20 Last Taken 06/15/20 08:00] melatonin 5 mg PO HSP #30 tab 06/17/20 [Rx Last Taken Unknown] polyethylene glycol 3350 [Miralax] 17 g PO DAILY #30 ea 06/17/20 [Rx Last Taken Unknown] COURSE Hospital Course Hospital course: Irma Benz is an 80-year-old female with a history of hypertension, atrial fibrillation, CVA, dementia, recent L1 compression fracture admitted to observation for constipation. Constipation resolved with a bowel regimen that included oral medications and enemas. The patient also had manual stool disimpaction attempt in the ED. She was admitted to observation, the next day had multiple bowel movements. The bowel regimen was decreased to Miralax once daily. The patient was discharged to her daughter's home where she will reside. Prior to admission the patient was spending most of the day at her daughter's home but sleeping at her own home however her daughter is concerned that the patient now requires 24 hour supervision due to dementia. Home medications were resumed during hospital observation except Diltiazem because blood pressure was low normal. At discharge Diltiazem was also held, she is on Toprol which will probably suffice for atrial fibrillation rate control as her heart rate remained normal during the hospital stay. If the patient develops atrial fibrillation with rapid ventricular response then consider adding back Diltiazem however calcium channel blockers can predispose elderly patient's to constipation. The patient was discharged on Miralax daily for constipation. Discharge diagnosis: Constipation Secondary discharge diagnosis: Atrial fibrillation Hypertension Dementia Time Spent with Patient Time attestation: Total time spent providing and/or coordinating discharge services: EXAM Constitutional Vitals: Temp Pulse Resp BP Pulse Ox 97.5 F 74 14 118/72 96 06/17/20 07:23 06/17/20 07:23 06/17/20 07:23 06/17/20 07:23 06/17/20 07:23 Additional findings Additional findings: Head: Atraumatic, normal inspection. Eyes: normal appearance, no scleral icterus. Neck: full ROM Respiratory: no respiratory distress. Cardiovascular: normal rate and rhythm, S1, S2. GI/Abdominal: soft, nontender, no guarding. Extremities: full range of motion, nontender. Neurological: CN II-XII intact, intact motor, intact sensation. Psychiatric: normal mood, memory impairment. Skin: warm, normal color Discharge Plan Patient/Caregiver Discharge Instructions Activity: increase activity as tolerated Diet: Regular Diet Instructions: Proctitis (ED), Vertebral Compression Fracture (ED), Fecal Impaction (ED), Ischemic Colitis (ED), Procedures for Compression Fractures of the Spine (DC) Prescriptions: New polyethylene glycol 3350 [Miralax] 17 gram Powder In Packet 17 g PO DAILY Qty: 30 RF: 3 melatonin 3 mg Tablet 5 mg PO HSP Qty: 30 RF: 2 Continued metoprolol succinate 25 MG tablet extended release 24 hr 25 mg PO DAILY RF: 0 Xarelto 20 MG tablet 20 mg PO DAILY RF: 0 lisinopril 20 mg Tablet 20 mg PO QDAY RF: 0 olanzapine 2.5 mg Tablet 2.5 mg PO QDAY RF: 0 Discontinued diltiazem HCl 240 mg Capsule,Extended Release 24 Hr 240 mg PO QDAY RF: 0 Follow Up Plan Follow up with: Stas Perales MD [Physician] - Penny Pandey PA-C [Primary Care Provider] - Patient Disposition: Home, Self-Care Prognosis: Fair Rehab Potential: Fair Overall status at discharge: patient is progressing back to baseline Discharge Orders: Discharge Order (Routine); Ordered 06/17/20 Ordered By: Tad MACARIO VTE Deep Vein Thrombosis/Pulmonary Embolism Present on Admission: No
== END 2020-06-17 12:30 | disposition home or self-care (01) ==
LOC: ED 20:51 → MEDSUR 20:51
PROVIDERS: ADMIT Internal Medicine; ATTEND Internal Medicine